=== PATIENT | female | born 1985 ===

== ENCOUNTER → 2016-10-05 | Outpatient (CLI) | payer OTHER ==
--- NOTE | 2016-10-07 16:14 | MR ---
EXAMINATION TYPE: MR brain wo/w con DATE OF EXAM: 10/05/2016 10:16 AM COMPARISON: NONE HISTORY: DIZZINESS CONTRAST: Performed utilizing 20 mL intravenous MultiHance gadolinium contrast. TECHNIQUE: Multiplanar, multiecho imaging on a 3.0 Aline magnet is performed through the brain. Stud y is performed within 24 hours of arrival to the hospital. The craniovertebral junction is normal. The pituitary is normal. Diffusion-weighted imaging is performed. No abnormal hyperintensity is present to suggest an acute i ntracranial infarct or acute ischemic change. There are scattered punctate areas of hyperintensity on T2 and Inversion Recovery weighted sequences which are non-specific but can be related to microvascular ischemic changes. Ventricles and sulci are appropriate for the patient age. No suspicious enhancement is evident. The dural sinus has some mixing of contrast with normal blood or has a filling defect. This is not ob structing the dural sinus. Consider MRV for additional evaluation. This may be more likely related to artifact although thrombus is not excluded at this time. IMPRESSIONS: 1. Irregular filling defect dural sinus. MRV is recommended for additional workup.
== END | disposition home or self-care (01) ==
LOC: RADMRIMAIN 09:06
PROVIDERS: ATTEND Family Medicine
DX: R42 Dizziness and giddiness (principal)
CPT/HCPCS: 70553; A9577

== ENCOUNTER → 2016-10-24 | Outpatient (CLI) | payer OTHER ==
--- NOTE | 2016-10-24 07:45 | MR ---
EXAMINATION TYPE: MR MRA/MRV head wo con DATE OF EXAM: 10/24/2016 COMPARISON: Prior MRI brain October 05, 2016. HISTORY: memory loss, dizziness, slurred speech TECHNIQUE: Time of flight images focusing on the [place] were performed without contrast.. N oncontrast imaging with post processing cerebral venous system was also performed. 2-D and 3-D postpr ocessing imaging is performed. FINDINGS: Only one patent distal vertebral artery is identified, difficult to say if this is single r ight vertebral artery or a tortuous course to distal left vertebral artery. No aneurysmal change is s een in posterior circulation. There are patent posterior communicating arteries identified bilaterall y. Images of the anterior circulation show hypoplastic right A1 segment with filling of right A2 segment due to patent anterior communicating artery. No aneurysmal change is evident. MRV images show patency of the superior sagittal and inferior sagittal sinuses. There is patent inter nal cerebral vein of [place]. There is patent but small caliber straight sinus. There are patent transv erse sinuses draining into sigmoid sinuses bilaterally with subsequent drainage into the proximal int ernal jugular veins. IMPRESSION: 1. No aneurysmal change at the level of the [place]. Normal variant as detailed above. Possi ble occluded or congenitally stenotic vertebral artery with patency of bilateral posterior communicat ing arteries noted. 2. No clinically significant deep cerebral venous thrombus.
== END | disposition home or self-care (01) ==
LOC: RADMRIMAIN 06:10
PROVIDERS: ATTEND Family Medicine
DX: R41.3 Other amnesia (principal); R47.81 Slurred speech; R42 Dizziness and giddiness
CPT/HCPCS: 70544

== ENCOUNTER 2016-11-26 10:00 | Day surgery (SDC) | payer OTHER ==
[2016-11-26] MEDS ORDERED: LIDOCAINE 1% 20 ML VIAL (10MG/ML) FOR IV START INTRADERMA ONE (10:32)
[2016-11-26 10:39] VITALS: RESP 16; TEMP 98.3
[2016-11-26] MEDS ORDERED: LACTATED RINGERS 1,000 ML IV ONE (10:39)
--- NOTE | 2016-11-26 11:30 | P.PCN ---
Date of Procedure: 11/26/16 Preoperative Diagnosis: Postoperative Diagnosis: Procedure(s) Performed: Implants: Anesthesia: local Surgeon: Emiliano Lew Pathology: none sent Condition: stable Disposition: PACU Indications for Procedure: Operative Findings: Description of Procedure: PREOPERATIVE DIAGNOSIS: 1-r/o multiple sclerosis POSTOPERATIVE DIAGNOSIS: 1-r/o multiple sclerosis PROCEDURE 1. Diagnostic lumbar puncture ANESTHESIA: Local with 1% lidocaine EBL: Minimal PROCEDURE INDICATION: The patient with persistent balance problems presents for diagnostic LP with measurement of opening pressures as ordered by Dr. Montejo. No use of blood thinners. PROCEDURE DESCRIPTION / TECHNIQUE: The patient was seen and identified in the preoperative area. Risks, benefits, complications, and alternatives were discussed with the patient, including but not limited to bleeding, infection, nerve damage, allergic reactions to medications, and incomplete pain relief. The patient agreed to proceed with the procedure and signed the consent after all questions were answered. Vital signs were stable. Patient was taken to the procedure room and time out was completed to confirm patient position, procedure, area of pain, and allergies. The patient was placed in the sitting position on procedure table with help from nursing staff. The lumbosacral area was prepped and draped in the usual sterile fashion. Vital signs were closely monitored during the procedure. After localization with 1% lidocaine, a 22-gauge 3.5-inch spinal needle was placed in the L4-L5 interspace. Stylet was removed and clear cerebrospinal fluid was obtained and the opening pressure was noted to be approximately 26.5 cm H2O. 18 ml CSF was removed and put into four tubes COMPLICATIONS: None COMMENTS: None DISPOSITION / PLANS: The patient was placed in a supine position and transferred to the recovery area in a stable condition for observation. There was no evidence of lower extremity motor or sensory deficit after the procedure. Patient was discharged from the recovery room after meeting discharge criteria. Home discharge instructions were given to the patient by the staff. The patient was reexamined prior to discharge and there were no issues. The patient will follow up with her neurologist as scheduled; she was educated about postdural puncture headaches and prevention with fluids and caffeine, and to come to the ER if the headache persisted.
[2016-11-26] MEDS ORDERED: IV FLUID CONTINUATION 1,000 ML IV ONE (11:41)
[2016-11-26 11:50] VITALS: PULSE 69
[2016-11-26 11:58] LABS: ALT 47 U/L (9-52); AST 28 U/L (14-36)
[2016-11-26 12:02] LABS: Rheumatoid Factor, Qnt <9 IU/mL (<12)
[2016-11-26 12:26] VITALS: BP 106/74
[2016-11-26 15:23] LABS: Treponemal Ab Non-Reactive (Non-Reactive)
[2016-11-26 16:24] LABS: ANA w/Reflex to Titer NEGATIVE (NEGATIVE); RNP AB Interpretation NEGATIVE (NEGATIVE)
[2016-11-26 18:12] LABS: Glucose,CSF 60 mg/dL (40-70)
[2016-11-26 19:03] LABS: Appearance,CSF Clear
[2016-11-26 19:07] LABS: Red Blood Cell, CSF Crenated 0 %; Red Blood Cell, CSF Fresh 100 %
[2016-11-27 11:51] LABS: Lyme IgG/IgM 0.1 Index; Lyme IgG/IgM Interp NEGATIVE (NEGATIVE)
== END 2016-11-26 12:18 | disposition home or self-care (01) ==
LOC: ORPAIN 10:00
PROVIDERS: ATTEND Anesthesiology
DX: R20.2 Paresthesia of skin (principal); R26.89 Other abnormalities of gait and mobility; Z79.82 Long term (current) use of aspirin; Z79.1 Long term (current) use of non-steroidal anti-inflammatories (NSAID); Z79.891 Long term (current) use of opiate analgesic
CPT/HCPCS: 62270; 81025; 82040; 82042; 82164; 82784; 82945; 83873; 83916; 84157; 84439; 84443; 84450; 84460; 85613; 85730; 85732; 86038; 86225; 86235; 86431; 86592; 86618; 86780; 87476; 87529; 87798; 88184; 88185; 89050

== ENCOUNTER 2016-11-28 16:12 | Emergency (ER) | payer OTHER ==
[2016-11-28] MEDS ORDERED: SODIUM CHLORIDE 0.9% 1,000 ML IV STA (17:12)
[2016-11-28] MEDS ORDERED: METOCLOPRAMIDE 5 MG/ML 2 ML VIAL IVP STA (17:12)
[2016-11-28] MEDS ORDERED: diphenhydrAMINE 50 MG/ML 1 ML VIAL IVP STA (17:12)
[2016-11-28] MEDS ORDERED: MORPHINE SULFATE 4 MG/ML SYRINGE IV STA (17:12)
--- NOTE | 2016-11-28 17:19 | ED ---
General Adult HPI - General Chief complaint: Headache Stated complaint: Headache Time Seen by Provider: 11/28/16 16:56 Source: patient, RN notes reviewed, old records reviewed Mode of arrival: ambulatory Limitations: no limitations - History of Present Illness Initial comments: 31-year-old female presents emergency Department 2 days after a lumbar puncture presenting with a severe headache. Patient reports that she is feeling fine after the procedure. She reports that the headache started last night and into today, and seems to be worse with position.. Patient states she's been taking Tylenol for the headache however it is not getting any better. She reports she' s had an episode of vomiting. She states that she's had the spinal tap to test cerebral spinal fluid for demyelinating diseases. Patient states that she also has had some left-sided rib pain with certain movements. Denies any fever or chills. Patient reports she had received the spinal tap from Dr. Montejo. - Related Data Home Medications Medication Instructions Recorded Confirmed Aspirin 325 mg PO DAILY 11/26/16 11/28/16 traMADol HCL [Ultram] 50 mg PO DAILY PRN 11/26/16 11/28/16 Previous Rx's Medication Instructions Recorded HYDROcodone/APAP 5-325MG [[place] 1 tab PO Q6HR PRN #10 tab 11/28/16 5-325] Ondansetron Odt [Zofran Odt] 4 mg PO Q8HR PRN #12 tab 11/28/16 Allergies Allergy/AdvReac Type Severity Reaction Status Date / Time No Known Allergies Allergy Verified 11/28/16 16:51 Review of Systems ROS Statement: Those systems with pertinent positive or pertinent negative responses have been documented in the HPI. ROS Other: All systems not noted in ROS Statement are negative. Past Medical History Additional Past Medical History / Comment(s): SPONDYOLOSIS, pt states she is currently being worked up for an autoimmune disorder History of Any Multi-Drug Resistant Organisms: None Reported Past Surgical History: No Surgical Hx Reported Past Anesthesia/Blood Transfusion Reactions: No Reported Reaction Past Psychological History: Depression Smoking Status: Current every day smoker Past Alcohol Use History: Occasional Past Drug Use History: None Reported - Past Family History DAD Family Medical History: Coronary Artery Disease (CAD), Hyperlipidemia General Exam - General Exam Comments Initial Comments: Is a 31-year-old female. No acute distress. Limitations: no limitations General appearance: alert, in no apparent distress Head exam: Present: atraumatic, normocephalic, normal inspection Eye exam: Present: normal appearance, PERRL, EOMI. Absent: scleral icterus, conjunctival injection, periorbital swelling ENT exam: Present: normal exam, mucous membranes moist Neck exam: Present: normal inspection. Absent: tenderness, meningismus, lymphadenopathy Respiratory exam: Present: normal lung sounds bilaterally. Absent: respiratory distress, wheezes, rales, rhonchi, stridor Cardiovascular Exam: Present: regular rate, normal rhythm, normal heart sounds. Absent: systolic murmur, diastolic murmur, rubs, gallop, clicks GI/Abdominal exam: Present: soft, normal bowel sounds. Absent: distended, tenderness, guarding, rebound, rigid Extremities exam: Present: normal inspection, full ROM, normal capillary refill. Absent: tenderness, pedal edema, joint swelling, calf tenderness Back exam: Present: normal inspection Neurological exam: Present: alert, oriented X3, CN II-XII intact Psychiatric exam: Present: normal affect, normal mood Skin exam: Present: warm, dry, intact, normal color. Absent: rash Course Vital Signs 11/28/16 16:48 Temperature 97.7 F Pulse Rate 77 Respiratory 18 Rate Blood Pressure 116/78 O2 Sat by Pulse 97 Oximetry Medical Decision Making - Medical Decision Making 31-year-old female presents emergency Department 2 days after a lumbar puncture presenting with a severe headache. Patient reports that she is feeling fine after the procedure. She reports that the headache started last night and into today. Patient states she's been taking Tylenol for the headache however it is not getting any better. She reports she's had an episode of vomiting. She states that she's had the spinal tap to test cerebral spinal fluid for demyelinating diseases. Patient states that she also has had some left-sided rib pain with certain movements. Denies any fever or chills. Patient was reevaluated and reports that her headache is somewhat diminished after IV fluids and pain medication. Patient's chest x-ray was reviewed and negative for any acute process. She does relate that the pain seems to be worse with sitting forward and the headache diminishes with laying totally flat. Was very consistent with the post spinal tap headache. Discussed with the patient condition with Dr. Marquez. Recommending that patient has caffeine, pain medication and nausea medication. Discussed with the patient to return to the emergency department in the morning if the headache continues to persist for possible blood patch by neurology. Patient agrees to treatment plan will comply. Return parameters were discussed. - Lab Data Result diagrams: 11/28/16 17:40 11/28/16 17:40 Lab Results 11/28/16 11/28/16 Range/Units 17:40 17:40 WBC 7.8 (3.8-10.6) k/uL RBC 4.94 (3.80-5.40) m/uL Hgb 16.0 (11.4-16.0) gm/dL Hct 42.8 (34.0-46.0) % MCV 86.7 (80.0-100.0) fL MCH 32.4 (25.0-35.0) pg MCHC 37.4 H (31.0-37.0) g/dL RDW 13.7 (11.5-15.5) % Plt Count 227 (150-450) k/uL Neutrophils % 82 % Lymphocytes % 14 % Monocytes % 3 % Eosinophils % 1 % Basophils % 0 % Neutrophils # 6.4 (1.3-7.7) k/uL Lymphocytes # 1.1 (1.0-4.8) k/uL Monocytes # 0.2 (0-1.0) k/uL Eosinophils # 0.1 (0-0.7) k/uL Basophils # 0.0 (0-0.2) k/uL Hyperchromasia Slight Sodium 140 (137-145) mmol/L Potassium 4.5 (3.5-5.1) mmol/L Chloride 106 (98-107) mmol/L Carbon Dioxide 25 (22-30) mmol/L Anion Gap 9 mmol/L BUN 10 (7-17) mg/dL Creatinine 0.77 (0.52-1.04) mg/dL Est GFR (MDRD) Af Amer >60 (>60 ml/min/1.73 sqM) Est GFR (MDRD) Non-Af >60 (>60 ml/min/1.73 sqM) Glucose 110 H (74-99) mg/dL Calcium 9.2 (8.4-10.2) mg/dL Total Bilirubin 0.9 (0.2-1.3) mg/dL AST 22 (14-36) U/L ALT 38 (9-52) U/L Alkaline Phosphatase 57 (38-126) U/L Total Protein 7.0 (6.3-8.2) g/dL Albumin 4.3 (3.5-5.0) g/dL Amylase <30 L (30-110) U/L Lipase 45 (23-300) U/L - Radiology Data Radiology results: report reviewed Chest x-ray is reviewed and negative for any acute process. Disposition Clinical Impression: Post lumbar puncture headache Disposition: HOME SELF-CARE Condition: Good Instructions: Acute Headache (ED), Lumbar Puncture (ED) Additional Instructions: denies follow-up with primary care provider. Increased Intake intake as well as take the nausea and pain medication as prescribed. Recommending return to the emergency department if headache continues to persist tomorrow morning. Prescriptions: HYDROcodone/APAP 5-325MG [[place] 5-325] 1 tab PO Q6HR PRN #10 tab PRN Reason: Nausea Ondansetron Odt [Zofran Odt] 4 mg PO Q8HR PRN #12 tab PRN Reason: Nausea Referrals: Christopher Chavez MD [Primary Care Provider] - 1-2 days Time of Disposition: 18:52
[2016-11-28 17:52] LABS: Basophils % (A) 0 %; CH 32.2; CHCM 37.4; Eosinophils # (A) 0.1 k/uL (0-0.7); Eosinophils % (A) 1 %; HCT 42.8 % (34.0-46.0); HDW 3.23; Hyperchromasia Slight; Luc # (Auto) 0.04; Luc % (Auto) 1; Lymphocytes # (A) 1.1 k/uL (1.0-4.8); Lymphocytes % (A) 14 %; MCH 32.4 pg (25.0-35.0); MCHC 37.4 g/dL (31.0-37.0); MCV 86.7 fL (80.0-100.0); Mean Platelet Volume 7.8; Monocytes # (A) 0.2 k/uL (0-1.0); Monocytes % (A) 3 %; Neutrophils # (A) 6.4 k/uL (1.3-7.7); Neutrophils % (A) 82 %; RBC 4.94 m/uL (3.80-5.40); RDW 13.7 % (11.5-15.5); WBC 7.8 k/uL (3.8-10.6); WBC (Perox) 7.53
[2016-11-28 18:02] LABS: ALT 38 U/L (9-52); AST 22 U/L (14-36); Alkaline Phosphatase 57 U/L (38-126); Amylase <30 U/L (30-110); Anion Gap 9 mmol/L; Blood Urea Nitrogen 10 mg/dL (7-17); Calcium 9.2 mg/dL (8.4-10.2); Carbon Dioxide 25 mmol/L (22-30); Chloride 106 mmol/L (98-107); Glucose 110 mg/dL (74-99); Non-African American GFR(MDRD) >60 (>60 ml/min/1.73 sqM); Potassium 4.5 mmol/L (3.5-5.1); Sodium 140 mmol/L (137-145); Total Bilirubin 0.9 mg/dL (0.2-1.3)
--- NOTE | 2016-11-28 18:30 | XR ---
EXAMINATION TYPE: XR chest 2V DATE OF EXAM: 11/28/2016 COMPARISON: NONE HISTORY: Chest pain TECHNIQUE: Frontal and lateral views of the chest are obtained. FINDINGS: There is no focal air space opacity. No evidence for pneumothorax. No pleural effusion. The cardiac silhouette size is within normal limits. The osseous structures are grossly intact. IMPRESSION: 1. No acute cardiopulmonary process.
[2016-11-28] MEDS ORDERED: HYDROmorphone 1 MG/ML 1 ML SYRINGE IVP STA (18:50)
[2016-11-28 18:59] VITALS: BP 103/58; PULSE 70; RESP 16; TEMP 97.9
== END 2016-11-28 19:28 | disposition home or self-care (01) ==
LOC: EC 16:12
DX: G97.1 Other reaction to spinal and lumbar puncture (principal); F17.200 Nicotine dependence, unspecified, uncomplicated; Z79.82 Long term (current) use of aspirin; Z87.39 Personal history of other diseases of the musculoskeletal system and connective tissue; Y84.4 Aspiration of fluid as the cause of abnormal reaction of the patient, or of later complication, without mention of misadventure at the time of the procedure
CPT/HCPCS: 36415; 80053; 82150; 83690; 85025; 87040; 71020; 99284; 96374; 96375 ×3; 96361 ×2; J2270; J1200; J2765; J1170

== ENCOUNTER 2016-12-01 18:44 | Emergency (ER) | payer OTHER ==
--- NOTE | 2016-12-01 19:31 | ED ---
General Adult HPI - General Chief complaint: Headache Stated complaint: headache Time Seen by Provider: 12/01/16 19:00 Source: patient, family, RN notes reviewed, old records reviewed Mode of arrival: ambulatory Limitations: no limitations - History of Present Illness Initial comments: Chief complaint and history of present illness is a 33-year-old female here with a post lumbar puncture headache. The patient had the LP done 5 days ago. 2 days after having had it done she will return the emergency room because of discomfort she was discharged home on recommendations increase her caffeine which she did but the headache is not gone away. No fever. The LP was done for evaluation of a demyelinating disease because of dizziness and poor balance. The patient is not taking any blood thinners. - Related Data Home Medications Medication Instructions Recorded Confirmed traMADol HCL [Ultram] 50 mg PO DAILY PRN 11/26/16 12/01/16 Tylenol Back And Body 1 tab PO Q12H PRN 12/01/16 12/01/16 Previous Rx's Medication Instructions Recorded HYDROcodone/APAP 5-325MG [[place] 1 tab PO Q6HR PRN #10 tab 11/28/16 5-325] Allergies Allergy/AdvReac Type Severity Reaction Status Date / Time No Known Allergies Allergy Verified 12/01/16 18:58 Review of Systems ROS Statement: Those systems with pertinent positive or pertinent negative responses have been documented in the HPI. Review of systems headache when she sits up. When she lays down significantly less problematical. Mild photophobia when up. No stiff neck. No shortness of breath GI/ problems. All systems reviewed. Past medical problems balance problems starting several months ago currently being worked up for connective tissue disorder or demyelinating problem. Surgeries none. Family history no cancers or immunodeficiency disorders. Patient denies ALLERGIES she does smoke strongly encouraged, alcohol use socially. ROS Other: All systems not noted in ROS Statement are negative. Past Medical History Additional Past Medical History / Comment(s): SPONDYOLOSIS, pt states she is currently being worked up for an autoimmune disorder History of Any Multi-Drug Resistant Organisms: None Reported Past Surgical History: No Surgical Hx Reported Past Anesthesia/Blood Transfusion Reactions: No Reported Reaction Past Psychological History: Depression Smoking Status: Current every day smoker Past Alcohol Use History: Occasional Past Drug Use History: None Reported - Past Family History DAD Family Medical History: Coronary Artery Disease (CAD), Hyperlipidemia General Exam - General Exam Comments Initial Comments: General: The patient is awake and alert, complains of a positional related headache when sitting upright she has pain. While laying flat significant other less pain but still uncomfortable. Patient had an LP done 5 days ago. Vital signs temperature 96.9 pulse 82 respiratory rate 18 pulse ox 99% room air blood pressure 115/77 Eye: Pupils are equal, round and reactive to light, extra-ocular movements are intact ; there is normal conjunctiva bilaterally. No signs of icterus. Ears, nose, mouth and throat: There are moist mucous membranes and no oral lesions. Neck: Mild discomfort to the right trapezius muscle. Patient thinks she may have slept wrong. Cardiovascular: There is a regular rate and rhythm. No murmur, rub or gallop is appreciated. Respiratory: Lungs are clear to auscultation, respirations are non-labored, breath sounds are equal. No wheezes, stridor, rales, or rhonchi. Gastrointestinal: No nausea no vomiting Back: Patient had an LP 5 days ago. Musculoskeletal: Normal ROM, no tenderness, There is no pedal edema. There is no calf tenderness or swelling. Sensation intact. Neurological: No neuro deficits. She does have a headache, post-LP type headache increases when sitting or standing decreases with lying flat. Skin: Skin is warm and dry and no rashes or lesions are noted. Limitations: no limitations Course Vital Signs 12/01/16 12/01/16 12/01/16 18:48 19:45 19:55 Temperature 96.9 F L Pulse Rate 82 75 72 Respiratory 18 18 18 Rate Blood Pressure 115/77 112/63 119/69 O2 Sat by Pulse 99 97 97 Oximetry 12/01/16 12/01/16 12/01/16 20:15 20:30 21:30 Temperature 98.0 F Pulse Rate 66 74 66 Respiratory 18 20 20 Rate Blood Pressure 111/70 119/75 115/74 O2 Sat by Pulse 97 97 20 L Oximetry Medical Decision Making - Medical Decision Making I discussed the case with on-call anesthesiologist will see the patient in emergency room for evaluation for possible blood patch. The procedure was done [address] Lew. Anesthesiologist performing the procedure here. He recommended patient lay flat for 30 minutes which she did. She is feeling significantly better. When she sat up she did have some discomfort below her left scapular region. Chest x -ray was done to rule out possibility of a pneumothorax. The radiologist's impression is there is no focal airspace, pleural effusion, or pneumothorax seen. Cardiac silhouette size is within normal limits. The osseous structures are intact. Impression no acute cardiopulmonary process. No significant change from prior. As read by Dr. cleveland Patient be advised return emergency room with any changes or problems. Follow- up with her family physician. Disposition Clinical Impression: Headache, spinal, postoperative Disposition: HOME SELF-CARE Condition: Fair Instructions: Lumbar Puncture (ED) Additional Instructions: Continue with home pain medications follow-up with family physician. Report any changes such as shortness of breath to emergency room. Referrals: Christopher Chavez MD [Primary Care Provider] - 1-2 days Time of Disposition: 22:05
--- NOTE | 2016-12-01 20:28 | P.CON ---
Consult Note - . Consult date: 12/01/16 Assessment/Plan:: This 31 year old lady comes to the emergency room with history of headache. She had a lumbar puncture done 5 days ago for diagnostic purposes to rule out demyelinating disease. She went home and next day started having headache which is bifrontal and occipital in location, 8-10 over 10 in intensity, postural in nature aggravated by standing or sitting position and feels better in the supine posture. She also has some photophobia. She came to the emergency room and was given fluids and tried a lot of caffeine but nothing seems to have worked. Anesthesia was consulted for performing epidural blood patch. History and labs were reviewed and informed consent was obtained. The procedure was done under complete aseptic precautions. Patient was positioned in the sitting posture, and the knee just position and L3-L4 space was identified with previous lumbar puncture [place] was noted. The back was cleaned with iodine solution 3 times. 2 mL of 1% lidocaine was infiltrated into the above mentioned space. A 17-gauge T[place] needle was inserted into the elbow mentioned space and a loss of resistance to aid with some kind at 4-1/2 cm. The ER nurse obtained 20 mL of blood from the left peripheral IV with fresh venipuncture under aseptic precautions. This was injected under aseptic precautions to the epidural space and any instant relief of headache was noted. The VAS came down to 0 from 10. The epidural needle was taken out. Patient was advised to lay flat for the next half an hour and then can be discharged.
[2016-12-01 20:41] VITALS: RESP 20
[2016-12-01 21:36] VITALS: TEMP 98
--- NOTE | 2016-12-01 21:44 | XR ---
EXAMINATION TYPE: XR chest 2V DATE OF EXAM: 12/01/2016 COMPARISON: Chest x-ray from 3 days ago HISTORY: Chest pain and right shoulder pain TECHNIQUE: Frontal and lateral views of the chest are obtained. FINDINGS: There is no focal air space opacity, pleural effusion, or pneumothorax seen. The cardiac silhouette size is within normal limits. The osseous structures are intact. IMPRESSION: No acute cardiopulmonary process. No significant change from prior.
[2016-12-01 22:13] VITALS: BP 113/56; PULSE 71
== END 2016-12-01 22:13 | disposition home or self-care (01) ==
LOC: EC 18:44
DX: G97.1 Other reaction to spinal and lumbar puncture (principal); Y84.4 Aspiration of fluid as the cause of abnormal reaction of the patient, or of later complication, without mention of misadventure at the time of the procedure; M25.511 Pain in right shoulder; F17.200 Nicotine dependence, unspecified, uncomplicated
CPT/HCPCS: 62273; 71020; 99284

== ENCOUNTER → 2017-01-12 | Outpatient (CLI) | payer OTHER ==
--- NOTE | 2017-01-12 11:35 | MR ---
EXAMINATION TYPE: MR brain wo/w [place] wo/wcon DATE OF EXAM: 01/12/2017 COMPARISON: 10/05/2016 HISTORY: Loss of Balance, Headaches, Follow up from previous MRI on PACS TECHNIQUE: Multiplanar, multisequence images of the brain and brainstem is performed without and with IV contras t, utilizing 9.5 mL intravenous Gadavist . FINDINGS: Diffusion weighted images demonstrate no evidence of a recent infarct or other diffusion ab normality. There is no extra-axial fluid collection or significant white matter signal abnormality. The ventricular system and cisternal spaces are normal in size and appearance. The brain volume is age appropriate. Midline structures demonstrate normal morphology. The craniocervical junction appears within normal limits. Post contrast images demonstrate no abnormal enhancement. The dural venous sinuses appear pa tent. Fluoroscopy changes of chronic mild sinusitis noted. There are a couple scattered areas of abnormal s ignal within the white matter which measure less than 5 mm of doubtful significance. Findings are sta ble. IMPRESSION: 1. No acute process [facility] DATE OF EXAM: 01/12/2017 COMPARISON: 10/24/2016 HISTORY: Loss of Balance, Headaches, Follow up from previous MRI on PACS CONTRAST: Standard multiplanar, multisequence MRI departmental protocol utilizing 9.5 mL intravenous Gadavist g adolinium contrast. FINDINGS: Visualized subclavian, and common carotid arteries are patent. Carotid bifurcations are widely patent . Left vertebral artery appears dominant. IMPRESSION: No acute process. Carotid artery bifurcations are widely patent. Left vertebral artery is dominant.
== END | disposition home or self-care (01) ==
LOC: RADMRIMAIN 10:11
PROVIDERS: ATTEND Psychiatry & Neurology Neurology
DX: R27.0 Ataxia, unspecified (principal)
CPT/HCPCS: 70549; 70553; A9581

== ENCOUNTER 2017-10-14 01:48 | Emergency (ER) | payer OTHER ==
[2017-10-14 02:00] VITALS: BP 132/92; PULSE 70; RESP 20; TEMP 97
--- NOTE | 2017-10-14 02:21 | ED ---
Lower Extremity Injury HPI - General Chief Complaint: Extremity Injury, Lower Stated Complaint: ankle pain Time Seen by Provider: 10/14/17 02:13 Source: patient, family, RN notes reviewed Mode of arrival: ambulatory Limitations: no limitations - History of Present Illness Initial Comments: This is a 32-year-old female who presents to the emergency department with chief complaint of right ankle injury. Patient states that she stepped out of her camper at approximately 9:30 this evening and tripped on a rut. She states that she twisted her ankle and fell to the ground. She states she was unable to initially get up off the ground. She states that she has difficulty bearing weight and ambulating due to pain. She states that she is able to walk only with putting pressure on her toes. She denies any other injuries or trauma. Denies recent fevers or chills, chest pain or shortness of breath, abdominal pain, nausea or vomiting. - Related Data Home Medications Medication Instructions Recorded Confirmed traMADol HCL [Ultram] 50 mg PO DAILY PRN 11/26/16 10/14/17 Tylenol Back And Body 1 tab PO Q12H PRN 12/01/16 10/14/17 Sertraline [Zoloft] 25 mg PO DAILY 10/14/17 10/14/17 predniSONE 5 mg PO DAILY 10/14/17 10/14/17 Previous Rx's Medication Instructions Recorded HYDROcodone/APAP 5-325MG [[place] 1 tab PO Q6HR PRN #10 tab 11/28/16 5-325] Allergies Allergy/AdvReac Type Severity Reaction Status Date / Time No Known Allergies Allergy Verified 10/14/17 02:00 Review of Systems ROS Statement: Those systems with pertinent positive or pertinent negative responses have been documented in the HPI. ROS Other: All systems not noted in ROS Statement are negative. Past Medical History Additional Past Medical History / Comment(s): SPONDYOLOSIS, pt states she is currently being worked up for an autoimmune disorder History of Any Multi-Drug Resistant Organisms: None Reported Past Surgical History: No Surgical Hx Reported Past Anesthesia/Blood Transfusion Reactions: No Reported Reaction Past Psychological History: Depression Smoking Status: Current every day smoker Past Alcohol Use History: Occasional Past Drug Use History: None Reported - Past Family History DAD Family Medical History: Coronary Artery Disease (CAD), Hyperlipidemia General Exam - General Exam Comments Initial Comments: General: Awake and alert, well-developed; in no apparent distress. HEENT: Head atraumatic, normocephalic. Pupils are equal, round and reactive to light. Extraocular movements intact. Oropharynx moist without erythema or exudate. Neck: Supple. Normal ROM. Cardiovascular: Regular rate and rhythm. No murmurs, rubs or gallops. Chest symmetrical. Respiratory: Lungs clear to auscultation bilaterally. No wheezes, rales or rhonchi. Normal respiratory effort with no use of accessory muscles. Musculoskeletal: Normal range of motion of the right ankle. There is tenderness on palpation of the lateral and medial ankle with diffuse soft tissue swelling and ecchymosis. No tenderness along the fifth metatarsal. Sensation is intact. Pedal pulses are 2+ equal and palpable bilaterally. Skin: [place], warm and dry without rashes or lesions. Neurological: Alert and oriented x3. CN II-XII grossly intact. Speech is fluent and answers are appropriate. No focal neuro deficits. Psychiatric: Normal mood and affect. No overt signs of depression or anxiety noted. Limitations: no limitations Course Vital Signs 10/14/17 01:57 Temperature 97 F L Pulse Rate 70 Respiratory 20 Rate Blood Pressure 132/92 O2 Sat by Pulse 99 Oximetry Medical Decision Making - Medical Decision Making This is a 32-year-old female who presents to the emergency department with chief complaint of right ankle injury. Patient twisted her right ankle this evening and has difficulty bearing weight and ambulating. On physical examination, there is diffuse swelling, tenderness and ecchymosis noted at the lateral and medial aspects of the right ankle. Patient is neurovascularly intact. X-ray of the right foot and right ankle revealed no acute fractures or dislocations. Patient likely suffering from an ankle sprain. Air cast was placed and patient tolerated well without complication. Recommended rest, ice, elevation and ibuprofen as needed. Recommend wearing the Aircast while ambulating. Recommended follow-up with orthopedics if no improvement of symptoms in 1 week. Patient's vital signs are stable and she is in no acute distress. She will be discharged home at this time. She is in agreement with plan and voices understanding. All questions answered. - Radiology Data Radiology results: report reviewed, image reviewed X-ray right ankle impression: Soft tissue swelling. No fracture. X-ray right foot impression: Negative right foot. Disposition Clinical Impression: Ankle sprain and strain Disposition: HOME SELF-CARE Condition: Good Instructions: Ankle Sprain (ED) Additional Instructions: Please rest, ice, elevate and wear air cast while ambulating. May take ibuprofen 600 mg every 6 hours for pain and inflammation. Please follow up with Dr. Gauthier, orthopedics if no improvement in symptoms in 1 week. Please follow up with primary care provider within 1-2 days. Return to emergency department if symptoms should worsen or any concerns arise. Is patient prescribed a controlled substance at d/c from ED?: No Referrals: None,Stated [Primary Care Provider] - 1-2 days Tres Gauthier DO [Doctor of Osteopathic Medicine] - 1-2 days Time of Disposition: 02:41
--- NOTE | 2017-10-14 02:33 | XR ---
EXAMINATION TYPE: XR ankle complete RT DATE OF EXAM: 10/14/2017 COMPARISON: NONE HISTORY: Pain and swelling TECHNIQUE: 3 views FINDINGS: There is soft tissue swelling around the ankle joint. I see no fracture nor dislocation. An kle mortise is anatomic. Joint spaces are normal. IMPRESSION: Soft tissue swelling. No fracture.
--- NOTE | 2017-10-14 02:33 | XR ---
EXAMINATION TYPE: XR foot complete RT DATE OF EXAM: 10/14/2017 COMPARISON: NONE HISTORY: Pain and swelling TECHNIQUE: 3 views FINDINGS: Metatarsals are intact. I see no fracture nor dislocation. Joint spaces are fairly normal. IMPRESSION: Negative right foot
== END 2017-10-14 02:56 | disposition home or self-care (01) ==
LOC: EC 01:48
DX: S93.401A Sprain of unspecified ligament of right ankle, initial encounter (principal); S96.911A Strain of unspecified muscle and tendon at ankle and foot level, right foot, initial encounter; D89.89 Other specified disorders involving the immune mechanism, not elsewhere classified; F32.9 Major depressive disorder, single episode, unspecified; F17.200 Nicotine dependence, unspecified, uncomplicated; Z79.52 Long term (current) use of systemic steroids; Z79.899 Other long term (current) drug therapy; Z57.39 Occupational exposure to other air contaminants; W18.09XA Striking against other object with subsequent fall, initial encounter; Y93.89 Activity, other specified; Y92.009 Unspecified place in unspecified non-institutional (private) residence as the place of occurrence of the external cause
CPT/HCPCS: 73610; 73630; 99283; L4350

== ENCOUNTER → 2017-10-22 | Outpatient (CLI) | payer OTHER ==
--- NOTE | 2017-10-22 16:57 | CONS ---
CONSULTATION SLEEP CONSULTATION: Farzana is a 32-year-old female patient, a primary of Dr. Violeta Guillen, who is having ongoing neurological symptoms, the exact cause of which is unknown. The patient has been experiencing loss of balance, ataxia, difficulty with mobility, frequent falls and memory deficits. She was investigated locally under the care of Dr. Finesse Montejo, and following that she was referred to [facility]. As part of her workup she had undergone a lumbar puncture and there was no indication for MS. She is still in the process of being investigated; no final diagnosis has been achieved. Meanwhile, the patient was given a trial of steroids, to which she seems to respond, and currently she is on maintenance prednisone of 2.5 mg p.o. daily. While on steroids the patient gained approximately 35 pounds and she started developing features of obstructive sleep apnea. For that reason she was referred to me for further investigation. From the sleep standpoint, the patient has very poor sleep hygiene and irregular schedule. She goes to bed at various times and gets out of bed at various times, and she takes naps during the day. As such, her sleep is excessively broken and fragmented. She has been told that she snores and quits breathing at times. She feels tired and sleepy during the day, and she takes naps at various times. She has been feeling excessively fatigued and sleepy. She occasionally grinds her teeth and she feels restless in sleep. No sleep paralysis. No hallucinations or cataplexy. PAST MEDICAL HISTORY: 1. Obesity. 2. Chronic headache and questionable demyelinating disease, under investigation; currently on steroids. 3. Degenerative arthritis. SURGICAL HISTORY: Surgical history includes previous lumbar puncture. DRUG ALLERGIES: NOT KNOWN. PSYCHIATRIC HISTORY: History of depression. SOCIAL HISTORY: Smokes one pack of cigarettes a day. No history of alcoholism. No history of IV drugs. She is . She has a fiance who is a long haul truck driver, and he spends a lot of time on the road. FAMILY HISTORY: Coronary artery disease and hyperlipidemia in her father. No family history of any sleep disorders. MEDICATION LIST: Medication list includes: 1. Prednisone 2.5 daily. 2. Zoloft 25 daily. 3. Motrin 800 every 6 hours. 4. Tylenol on a p.r.n. basis. REVIEW OF SYSTEMS: Twelve-point review of system was done. Positive findings are all mentioned above in the history of present illness. She has issues with chronic headache, imbalance, numbness and tingling, falls and memory problems. No episodes of waking up in the middle of the night for urination, choking or gasping. No sleepwalking. No sleeptalking. No palpitation. No heartburn. No cardiac disease. No respiratory distress. No heartburn. No nausea or vomiting. No wounds or sores or ulcerations. She has some degenerative arthritis and she has broken teeth related to a previous fall. PHYSICAL EXAMINATION: HER CURRENT VITALS: BP is 122/74, pulse 100, respirations 16, saturation 97% on room air. Temperature 97.5. Weight is 242. Height is 65 inches. Neck size is 15-1/2 inches. GENERAL APPEARANCE: Calm, comfortable. No acute distress. Head is atraumatic, normocephalic. NECK: Supple. Mallampati class 2 to 3. No goiter or neck masses. LUNGS: Clear to auscultation. Heart sounds are regular rate and rhythm. Normal S1, S2. No S3. No murmurs. ABDOMEN: Soft, nontender. No organomegaly. EXTREMITIES: No edema. No cyanosis or clubbing. SKIN: Negative for any wounds or ulcerations. PSYCH: Positive history of anxiety with a possible component of depression in addition. IMPRESSION: 1. Obstructive sleep apnea suspected; currently under investigation. 2. Poor sleep hygiene measures with an irregular sleep schedule. 3. Neurologic manifestations of a disease, currently under investigation. Possible demyelinating disorder. Currently on prednisone 2.5 mg p.o. daily as maintenance. 4. Obesity with a body mass index of 39.6. 5. Chronic tiredness and sleepiness with an Luther score of 19. PLAN: Very important for this patient to have a consistent sleep schedule. I requested that she wake up at the same time every day, and we established a get-up time to be around 6 a.m. in the morning. She needs to follow this even on weekends and during vacations. She also will set up a bedtime that is early enough for her to get at least 5 to 6 hours of sleep, and she will gradually move her time to go to bed earlier to establish 7 hours. I asked her not to go to bed unless she is feeling sleepy, and if she is unable to go to sleep, I asked her to leave the bed after 20 minutes of inability to fall asleep. We talked about relaxation techniques. We talked about limiting exposure to bright light in the evenings. I asked her to turn off her television and any other electronic devices at least 30 minutes before going to bed. Exercising regularly may help in addition to loss of weight and avoidance of any caffeinated beverages or alcohol. The patient will regulate her sleep schedule, and following that she will be set up for a screening polysomnogram to rule out obstructive sleep apnea and any other pathology contributing to her chronic fatigue and sleepiness. We will continue to follow. MMMOISEL / IJN: [id number] /
== END | disposition home or self-care (01) ==
LOC: SLEEP 15:20
PROVIDERS: ATTEND Internal Medicine Critical Care Medicine
DX: E66.9 Obesity, unspecified (principal); F17.210 Nicotine dependence, cigarettes, uncomplicated; R53.83 Other fatigue; R51 Headache; G89.29 Other chronic pain; M19.90 Unspecified osteoarthritis, unspecified site; Z68.39 Body mass index [BMI] 39.0-39.9, adult; Z79.51 Long term (current) use of inhaled steroids; Z79.899 Other long term (current) drug therapy; Z79.1 Long term (current) use of non-steroidal anti-inflammatories (NSAID)
CPT/HCPCS: 99211

== ENCOUNTER 2019-01-20 12:08 | Emergency (ER) | payer OTHER ==
[2019-01-20] MEDS ORDERED: SODIUM CHLORIDE 0.9% 1,000 ML IV ONE (12:23)
--- NOTE | 2019-01-20 12:59 | ED ---
General Adult HPI - General Chief complaint: Vaginal Bleeding Stated complaint: Vaginal bleeding-14 wks pg Time Seen by Provider: 01/20/19 12:19 Source: patient, EMS, RN notes reviewed Mode of arrival: ambulatory Limitations: no limitations - History of Present Illness Initial comments: 33-year-old female currently 14 weeks with a LMP of 10/14/2018 presents to the emergency room for vaginal bleeding. States that she woke up this morning there was blood in her clothes. States she went to the bathroom and had a lot of blood in the toilet. States she feels like she miscarried but is unsure. Patient follows with Dr. Nuñez and has had an uncomplicated thus far. Denies any pain but does admit to some mild cramping. States she recently had a negative gonorrhea chlamydia and trichomonas screen.Patient has no other complaints at this time including shortness of breath, chest pain, abdominal pain, nausea or vomiting, headache, or visual changes. - Related Data Home Medications Medication Instructions Recorded Confirmed traMADol HCL [Ultram] 50 mg PO DAILY PRN 11/26/16 10/14/17 Tylenol Back And Body 1 tab PO Q12H PRN 12/01/16 10/14/17 Sertraline [Zoloft] 25 mg PO DAILY 10/14/17 10/14/17 predniSONE 5 mg PO DAILY 10/14/17 10/14/17 Previous Rx's Medication Instructions Recorded HYDROcodone/APAP 5-325MG [[place] 1 tab PO Q6HR PRN #10 tab 11/28/16 5-325] Allergies Allergy/AdvReac Type Severity Reaction Status Date / Time No Known Allergies Allergy Verified 01/20/19 12:21 Review of Systems ROS Statement: Those systems with pertinent positive or pertinent negative responses have been documented in the HPI. ROS Other: All systems not noted in ROS Statement are negative. Past Medical History Additional Past Medical History / Comment(s): SPONDYOLOSIS, pt states she is currently being worked up for an autoimmune disorder History of Any Multi-Drug Resistant Organisms: None Reported Past Surgical History: No Surgical Hx Reported Past Anesthesia/Blood Transfusion Reactions: No Reported Reaction Past Psychological History: Depression Smoking Status: Current every day smoker Past Alcohol Use History: None Reported Past Drug Use History: None Reported - Past Family History DAD Family Medical History: Coronary Artery Disease (CAD), Hyperlipidemia General Exam Limitations: no limitations General appearance: alert, in no apparent distress Head exam: Present: atraumatic, normocephalic, normal inspection Eye exam: Present: normal appearance, PERRL, EOMI. Absent: scleral icterus, conjunctival injection, periorbital swelling ENT exam: Present: normal exam, mucous membranes moist Neck exam: Present: normal inspection. Absent: tenderness, meningismus, lymphadenopathy Respiratory exam: Present: normal lung sounds bilaterally. Absent: respiratory distress, wheezes, rales, rhonchi, stridor Cardiovascular Exam: Present: regular rate, normal rhythm, normal heart sounds. Absent: systolic murmur, diastolic murmur, rubs, gallop, clicks GI/Abdominal exam: Present: soft, normal bowel sounds. Absent: distended, tende rness, guarding, rebound, rigid External exam: Present: normal external exam. Absent: erythema, swelling, lesions, lacerations, ecchymosis Speculum exam: Present: vaginal bleeding (mild). Absent: normal speculum exam, erythema, vaginal discharge, cervical discharge, foreign body, tissue, laceration By manual exam: Present: normal by manual exam. Absent: cervical motion tenderness, adnexal tenderness, adnexal mass, uterine enlargement, uterine tenderness Neurological exam: Present: alert Course Vital Signs 01/20/19 12:19 Temperature 98.0 F Pulse Rate 85 Respiratory 16 Rate Blood Pressure 113/73 O2 Sat by Pulse 98 Oximetry Medical Decision Making - Medical Decision Making History as documented and obtain from patient. Physical exam is documented. No significant hemorrhage noted. Bleeding seems to have ceased. CBC is unremarkable, hemoglobin is stable. CMP and urine are unremarkable as well. Ultrasound shows a single live intrauterine with a sonographic age of 15 weeks. Low-lying placenta which patient will follow up with her CHILD SUPPORT AGENT for. She will return if she has any worsening symptoms. Patient is agreeable to this plan. - Lab Data Result diagrams: 01/20/19 12:26 01/20/19 12:26 Lab Results 01/20/19 01/20/19 01/20/19 Range/Units 12:25 12:26 12:26 WBC 6.5 (3.8-10.6) k/uL RBC 3.91 (3.80-5.40) m/uL Hgb 12.4 (11.4-16.0) gm/dL Hct 36.0 (34.0-46.0) % MCV 92.2 (80.0-100.0) fL MCH 31.6 (25.0-35.0) pg MCHC 34.3 (31.0-37.0) g/dL RDW 14.8 (11.5-15.5) % Plt Count 186 (150-450) k/uL Neutrophils % 74 % Lymphocytes % 21 % Monocytes % 3 % Eosinophils % 2 % Basophils % 0 % Neutrophils # 4.8 (1.3-7.7) k/uL Lymphocytes # 1.3 (1.0-4.8) k/uL Monocytes # 0.2 (0-1.0) k/uL Eosinophils # 0.1 (0-0.7) k/uL Basophils # 0.0 (0-0.2) k/uL Sodium 138 (137-145) mmol/L Potassium 3.7 (3.5-5.1) mmol/L Chloride 110 H (98-107) mmol/L Carbon Dioxide 20 L (22-30) mmol/L Anion Gap 8 mmol/L BUN 9 (7-17) mg/dL Creatinine 0.48 L (0.52-1.04) mg/dL Est GFR (CKD-EPI)AfAm >90 (>60 ml/min/1.73 sqM) Est GFR (CKD-EPI)NonAf >90 (>60 ml/min/1.73 sqM) Glucose 117 H (74-99) mg/dL Calcium 8.7 (8.4-10.2) mg/dL Total Bilirubin 0.5 (0.2-1.3) mg/dL AST 16 (14-36) U/L ALT 20 (9-52) U/L Alkaline Phosphatase 37 L (38-126) U/L Total Protein 6.0 L (6.3-8.2) g/dL Albumin 3.4 L (3.5-5.0) g/dL HCG, Quant 44915.6 mIU/mL Urine Color Urine Appearance (Clear) Urine pH (5.0-8.0) Ur Specific [place] (1.001-1.035) Urine Protein (Negative) Urine Glucose (UA) (Negative) Urine Ketones (Negative) Urine Blood (Negative) Urine Nitrite (Negative) Urine Bilirubin (Negative) Urine Urobilinogen (<2.0) mg/dL Ur Leukocyte Esterase (Negative) Urine RBC (0-5) /hpf Ur Squamous Epith Cells (0-4) /hpf Urine Mucus (None) /hpf Blood Type O Positive Blood Type Confirm Blood Type Recheck No Previous Record Bld Type Recheck Status CABO Indicated Antibody Screen NEGATIVE Spec Expiration Date 01/23/2019232501/20/19 01/20/19 Range/Units 12:26 13:45 WBC (3.8-10.6) k/uL RBC (3.80-5.40) m/uL Hgb (11.4-16.0) gm/dL Hct (34.0-46.0) % MCV (80.0-100.0) fL MCH (25.0-35.0) pg MCHC (31.0-37.0) g/dL RDW (11.5-15.5) % Plt Count (150-450) k/uL Neutrophils % % Lymphocytes % % Monocytes % % Eosinophils % % Basophils % % Neutrophils # (1.3-7.7) k/uL Lymphocytes # (1.0-4.8) k/uL Monocytes # (0-1.0) k/uL Eosinophils # (0-0.7) k/uL Basophils # (0-0.2) k/uL Sodium (137-145) mmol/L Potassium (3.5-5.1) mmol/L Chloride (98-107) mmol/L Carbon Dioxide (22-30) mmol/L Anion Gap mmol/L BUN (7-17) mg/dL Creatinine (0.52-1.04) mg/dL Est GFR (CKD-EPI)AfAm (>60 ml/min/1.73 sqM) Est GFR (CKD-EPI)NonAf (>60 ml/min/1.73 sqM) Glucose (74-99) mg/dL Calcium (8.4-10.2) mg/dL Total Bilirubin (0.2-1.3) mg/dL AST (14-36) U/L ALT (9-52) U/L Alkaline Phosphatase (38-126) U/L Total Protein (6.3-8.2) g/dL Albumin (3.5-5.0) g/dL HCG, Quant mIU/mL Urine Color Light Yellow Urine Appearance Clear (Clear) Urine pH 6.5 (5.0-8.0) Ur Specific [place] 1.006 (1.001-1.035) Urine Protein Negative (Negative) Urine Glucose (UA) Negative (Negative) Urine Ketones Negative (Negative) Urine Blood Moderate H (Negative) Urine Nitrite Negative (Negative) Urine Bilirubin Negative (Negative) Urine Urobilinogen <2.0 (<2.0) mg/dL Ur Leukocyte Esterase Negative (Negative) Urine RBC 24 H (0-5) /hpf Ur Squamous Epith Cells <1 (0-4) /hpf Urine Mucus Rare H (None) /hpf Blood Type Blood Type Confirm O Positive Blood Type Recheck Bld Type Recheck Status Antibody Screen Spec Expiration Date Disposition Clinical Impression: Vaginal bleeding during Disposition: HOME SELF-CARE Condition: Good Instructions (If sedation given, give patient instructions): Threatened Misca rriage (ED) Additional Instructions: Please follow up with CHILD SUPPORT AGENT as soon as possible. Please return to the emergency department if you have any worsening symptoms. Is patient prescribed a controlled substance at d/c from ED?: No Referrals: Violeta Guillen MD [Primary Care Provider] - 1-2 days Time of Disposition: 14:34
[2019-01-20 13:00] LABS: ALT 20 U/L (9-52); AST 16 U/L (14-36); African American GFR (CKD) >90 (>60 ml/min/1.73 sqM); Albumin 3.4 g/dL (3.5-5.0); Alkaline Phosphatase 37 U/L (38-126); Anion Gap 8 mmol/L; Blood Urea Nitrogen 9 mg/dL (7-17); Calcium 8.7 mg/dL (8.4-10.2); Carbon Dioxide 20 mmol/L (22-30); Chloride 110 mmol/L (98-107); Glucose 117 mg/dL (74-99); Potassium 3.7 mmol/L (3.5-5.1); Sodium 138 mmol/L (137-145); Total Bilirubin 0.5 mg/dL (0.2-1.3)
[2019-01-20 13:23] LABS: Basophils % (A) 0 %; Eosinophils # (A) 0.1 k/uL (0-0.7); Eosinophils % (A) 2 %; HGB 12.4 gm/dL (11.4-16.0); Lymphocytes # (A) 1.3 k/uL (1.0-4.8); Lymphocytes % (A) 21 %; MCH 31.6 pg (25.0-35.0); MCHC 34.3 g/dL (31.0-37.0); MCV 92.2 fL (80.0-100.0); Mean Platelet Volume 7.5; Monocytes # (A) 0.2 k/uL (0-1.0); Monocytes % (A) 3 %; Neutrophils # (A) 4.8 k/uL (1.3-7.7); Neutrophils % (A) 74 %; Platelet Count 186 k/uL (150-450); RBC 3.91 m/uL (3.80-5.40); RDW 14.8 % (11.5-15.5); WBC 6.5 k/uL (3.8-10.6)
--- NOTE | 2019-01-20 13:33 | US ---
EXAMINATION TYPE: US OB >= 14 wk fetus DATE OF EXAM: 01/20/2019 COMPARISON: None CLINICAL HISTORY: Painbleeding with TECHNIQUE: Transabdominal (TA) GESTATIONAL AGE / DATING Physician Established: (14 weeks/0 days) EDC: 07/21/2019 Dates by LMP: (14 weeks/0 days) EDC: 07/21/2019 Dates by First Scan: No previous this is first scan Dates by Current Scan: (15 weeks/2 days) EDC: 07/12/2019 SURVEY IUP: Single PLACENTA: Anterior PREVIA: Low lying placenta terminating approximately 2.3 cm from the internal cervical os. TORI: 10.9 cm Normal CERVICAL LENGTH (transabdominal: norm > 3.0cm): 3.7 cm BIOMETRY PRESENTATION: Breech BPD: 2.7 cm 14 weeks / 5 days HC: 10.5 cm 15 weeks / 0 days AC: 8.8 cm 15 weeks / 0 days FL: 1.7 cm 15 weeks / 1 days ESTIMATED WEIGHT IN GRAMS: 113.67 grams ESTIMATED WEIGHT IN LBS/OZ: 0 lbs. 4 oz. WEIGHT PERCENTAGE BASED ON ESTABLISHED DATES: 96.1% HC/AC: 1.2 Normal FL/AC: 19.7 Normal HEART RATE: 144 bpm RHYTHM: Normal Live IUP that measures slightly ahead of LMP. IMPRESSION: Single live intrauterine has a sonographic age of 15 weeks and 2 days and estim ated date of delivery of 07/12/2019, discordant with menstrual age. Additionally there is a low-lying placenta. Surveillance is recommended in 3 menstrual to ensure placental retraction.
[2019-01-20 13:43] LABS: HCG,Quantitative Serum 19064.6 mIU/mL
[2019-01-20 14:00] LABS: Appearance,Urine Clear (Clear); Bilirubin,Urine Negative (Negative); Blood,Urine Moderate (Negative); Color,Urine Light Yellow; Glucose,Urine (UA) Negative (Negative); Ketones,Urine Negative (Negative); Leukocyte Esterase,Urine Negative (Negative); Mucus,Urine Rare /hpf; Nitrite,Urine Negative (Negative); PH, Urine 6.5 (5.0-8.0); Protein,Urine Negative (Negative); RBC,Urine 24 /hpf (0-5); Specific Gravity,Urine 1.006 (1.001-1.035); Squamous Epithelial Cell,Urine <1 /hpf (0-4); Urobilinogen,Urine <2.0 mg/dL (<2.0)
[2019-01-20 14:48] VITALS: BP 119/78; PULSE 92; RESP 18; TEMP 97
== END 2019-01-20 14:48 | disposition home or self-care (01) ==
LOC: EC 12:08
DX: O20.9 Hemorrhage in early pregnancy, unspecified (principal); O99.89 Other specified diseases and conditions complicating pregnancy, childbirth and the puerperium; R25.2 Cramp and spasm; O99.342 Other mental disorders complicating pregnancy, second trimester; F32.9 Major depressive disorder, single episode, unspecified; O99.332 Smoking (tobacco) complicating pregnancy, second trimester; F17.200 Nicotine dependence, unspecified, uncomplicated; Z3A.15 15 weeks gestation of pregnancy; Z79.52 Long term (current) use of systemic steroids; Z79.899 Other long term (current) drug therapy
CPT/HCPCS: 36415; 76805; 80053; 81001; 84702; 85025; 86850; 86900; 86901; 96360; 96361; 99285

== ENCOUNTER 2019-02-25 14:25 | Emergency (ER) | payer OTHER ==
--- NOTE | 2019-02-25 15:11 | ED ---
Female Urogenital HPI - General Chief complaint: Vaginal Bleeding Stated complaint: vaginal bleeding-19 wks preg Time Seen by Provider: 02/25/19 14:35 Source: patient Mode of arrival: ambulatory Limitations: no limitations - History of Present Illness Initial comments: Patient is a 33-year-old female presenting to the emergency Department with complaints of vaginal bleeding since this morning. Patient is currently 19 weeks . Patient states she had this issue approximately one month ago and was found to have a placenta previa. Patient sees Dr. Nuñez. Patient is . Patient admits to some mild lower abdominal discomfort, no cramping, no severe pain. Patient states she was cleaning a lot yesterday. Patient has been having spotting on and off for the past month but has never been this heavy. Patient states she is soaking through a couple pads today. Patient denies fever, chills, urinary complaints. Patient has no other complaints at this time. Upon arrival to ER, vital signs are stable. - Related Data Home Medications Medication Instructions Recorded Confirmed Pnv,Calcium 72/Iron/Folic Acid 1 tab PO DAILY 02/25/19 02/25/19 [ Plus Tablet] diphenhydrAMINE [Benadryl] 50 mg PO BID 02/25/19 02/25/19 Allergies Allergy/AdvReac Type Severity Reaction Status Date / Time No Known Allergies Allergy Verified 02/25/19 14:47 Review of Systems ROS Statement: Those systems with pertinent positive or pertinent negative responses have been documented in the HPI. ROS Other: All systems not noted in ROS Statement are negative. Past Medical History Additional Past Medical History / Comment(s): SPONDYOLOSIS, pt states she is currently being worked up for an autoimmune disorder History of Any Multi-Drug Resistant Organisms: None Reported Past Surgical History: No Surgical Hx Reported Past Anesthesia/Blood Transfusion Reactions: No Reported Reaction Past Psychological History: Depression Past Alcohol Use History: Occasional - Past Family History DAD Family Medical History: Coronary Artery Disease (CAD), Hyperlipidemia General Exam - General Exam Comments Initial Comments: GENERAL: Well-appearing, well-nourished and in no acute distress. HEAD: Atraumatic, normocephalic. EYES: Pupils equal round and reactive to light, extraocular movements intact, sclera anicteric, conjunctiva are normal. ENT: TMs normal, nares patent, oropharynx clear without exudates. Moist mucous membranes. NECK: Normal range of motion, supple without lymphadenopathy or JVD. LUNGS: Breath sounds clear to auscultation bilaterally and equal. No wheezes rales or rhonchi. HEART: Regular rate and rhythm without murmurs, rubs or gallops. ABDOMEN: Soft, nontender, normoactive bowel sounds. No guarding, no rebound. No masses appreciated. : Deferred, declined today. EXTREMITIES: Normal range of motion, no pitting or edema. No clubbing or cyanosis. NEUROLOGICAL: Cranial nerves II through XII grossly intact. Normal speech, normal gait. PSYCH: Normal mood, normal affect. SKIN: Warm, Dry, normal turgor, no rashes or lesions noted. Limitations: no limitations Course Vital Signs 02/25/19 02/25/19 14:29 17:58 Temperature 97.8 F 97.9 F Pulse Rate 103 H 70 Respiratory 20 16 Rate Blood Pressure 112/70 142/74 O2 Sat by Pulse 98 99 Oximetry Medical Decision Making - Medical Decision Making Patient is a 33-year-old female presenting with vaginal bleeding since this morning. Patient is 19 weeks . . Ultrasound shows placenta previa, HR 132. CBC, CMP, UA are all normal. Patient will follow up with Dr. Nuñez tomorrow. Patient is in agreement with this plan of care. Return parameters were discussed with the patient she verbalized understanding. Patient stable for discharge at this time. Case discussed with Dr. Pepe. - Lab Data Result diagrams: 02/25/19 15:05 02/25/19 15:05 Lab Results 02/25/19 02/25/19 02/25/19 Range/Units 15:05 15:05 15:05 WBC 7.8 (3.8-10.6) k/uL RBC 3.92 (3.80-5.40) m/uL Hgb 12.1 (11.4-16.0) gm/dL Hct 37.0 (34.0-46.0) % MCV 94.4 (80.0-100.0) fL MCH 30.9 (25.0-35.0) pg MCHC 32.7 (31.0-37.0) g/dL RDW 14.6 (11.5-15.5) % Plt Count 170 (150-450) k/uL Neutrophils % 76 % Lymphocytes % 18 % Monocytes % 3 % Eosinophils % 2 % Basophils % 0 % Neutrophils # 6.0 (1.3-7.7) k/uL Lymphocytes # 1.4 (1.0-4.8) k/uL Monocytes # 0.2 (0-1.0) k/uL Eosinophils # 0.1 (0-0.7) k/uL Basophils # 0.0 (0-0.2) k/uL Sodium 137 (137-145) mmol/L Potassium 3.7 (3.5-5.1) mmol/L Chloride 108 H (98-107) mmol/L Carbon Dioxide 20 L (22-30) mmol/L Anion Gap 9 mmol/L BUN 7 (7-17) mg/dL Creatinine 0.49 L (0.52-1.04) mg/dL Est GFR (CKD-EPI)AfAm >90 (>60 ml/min/1.73 sqM) Est GFR (CKD-EPI)NonAf >90 (>60 ml/min/1.73 sqM) Glucose 86 (74-99) mg/dL Calcium 8.9 (8.4-10.2) mg/dL Total Bilirubin 0.5 (0.2-1.3) mg/dL AST 16 (14-36) U/L ALT 12 (9-52) U/L Alkaline Phosphatase 46 (38-126) U/L Total Protein 6.5 (6.3-8.2) g/dL Albumin 3.7 (3.5-5.0) g/dL HCG, Quant 5290.0 mIU/mL Urine Color Yellow Urine Appearance Clear (Clear) Urine pH 6.0 (5.0-8.0) Ur Specific Margie 1.014 (1.001-1.035) Urine Protein Negative (Negative) Urine Glucose (UA) Negative (Negative) Urine Ketones Negative (Negative) Urine Blood Moderate H (Negative) Urine Nitrite Negative (Negative) Urine Bilirubin Negative (Negative) Urine Urobilinogen <2.0 (<2.0) mg/dL Ur Leukocyte Esterase Negative (Negative) Urine RBC 24 H (0-5) /hpf Urine WBC 1 (0-5) /hpf Ur Squamous Epith Cells 1 (0-4) /hpf Hyaline Casts 1 (0-2) /lpf Urine Mucus Rare H (None) /hpf Disposition Clinical Impression: Vaginal bleeding Disposition: HOME SELF-CARE Condition: Stable Instructions (If sedation given, give patient instructions): Placenta Previa (ED) Additional Instructions: Please return to the Emergency Department if symptoms worsen or any other concerns. Follow up with Dr. Nuñez as discussed. Is patient prescribed a controlled substance at d/c from ED?: No Referrals: None,Stated [Primary Care Provider] - 1-2 days Orquidea Nuñez DO [Doctor of Osteopathic Medicine] - 1-2 days
[2019-02-25 15:38] LABS: Basophils % (A) 0 %; Eosinophils # (A) 0.1 k/uL (0-0.7); Eosinophils % (A) 2 %; HGB 12.1 gm/dL (11.4-16.0); Lymphocytes # (A) 1.4 k/uL (1.0-4.8); Lymphocytes % (A) 18 %; MCH 30.9 pg (25.0-35.0); MCHC 32.7 g/dL (31.0-37.0); MCV 94.4 fL (80.0-100.0); Mean Platelet Volume 7.7; Monocytes # (A) 0.2 k/uL (0-1.0); Monocytes % (A) 3 %; Neutrophils % (A) 76 %; Platelet Count 170 k/uL (150-450); RBC 3.92 m/uL (3.80-5.40); RDW 14.6 % (11.5-15.5); WBC 7.8 k/uL (3.8-10.6)
[2019-02-25 15:40] LABS: Appearance,Urine Clear (Clear); Bilirubin,Urine Negative (Negative); Blood,Urine Moderate (Negative); Color,Urine Yellow; Glucose,Urine (UA) Negative (Negative); Hyaline Casts,Urine 1 /lpf (0-2); Ketones,Urine Negative (Negative); Leukocyte Esterase,Urine Negative (Negative); Mucus,Urine Rare /hpf; Nitrite,Urine Negative (Negative); Protein,Urine Negative (Negative); RBC,Urine 24 /hpf (0-5); Specific Gravity,Urine 1.014 (1.001-1.035); Squamous Epithelial Cell,Urine 1 /hpf (0-4); Urobilinogen,Urine <2.0 mg/dL (<2.0)
[2019-02-25 15:46] LABS: ALT 12 U/L (9-52); AST 16 U/L (14-36); African American GFR (CKD) >90 (>60 ml/min/1.73 sqM); Albumin 3.7 g/dL (3.5-5.0); Alkaline Phosphatase 46 U/L (38-126); Anion Gap 9 mmol/L; Blood Urea Nitrogen 7 mg/dL (7-17); Calcium 8.9 mg/dL (8.4-10.2); Carbon Dioxide 20 mmol/L (22-30); Chloride 108 mmol/L (98-107); Glucose 86 mg/dL (74-99); Potassium 3.7 mmol/L (3.5-5.1); Sodium 137 mmol/L (137-145); Total Bilirubin 0.5 mg/dL (0.2-1.3); Total Protein 6.5 g/dL (6.3-8.2)
--- NOTE | 2019-02-25 16:13 | US ---
EXAMINATION TYPE: US OB >= 14 wk fetus DATE OF EXAM: 02/25/2019 COMPARISON: 01/20/2019 CLINICAL HISTORY: bleeding. Patient stated has had vaginal bleeding since 01/20/19; TECHNIQUE: Transabdominal (TA) GESTATIONAL AGE / DATING Physician Established: (19 weeks/1 day) EDC: 07/21/2019 Dates by LMP: (19weeks/1 day) EDC: 07/21/2019 Dates by First Scan: (20weeks/2 days) EDC: 07/12/19 Dates by Current Scan: (19weeks/2 days) EDC: 07/20/2019 Beta HCG (if available): NA SURVEY IUP: Single PLACENTA: Fundal /anterior PREVIA: Marginal TORI: 14.0 cm Normal CERVICAL LENGTH (transabdominal: norm > 3.0cm): 3.7 cm BIOMETRY PRESENTATION: Breech initially LIE: Transverse with head maternal Right BPD: 4.5 cm 19 weeks / 3 days HC: 16.4 cm 19 weeks / 1 day AC: 14.4 cm 19 weeks / 5 days FL: 3.1 cm 19 weeks / 5 days ESTIMATED WEIGHT IN GRAMS: 304.07 grams ESTIMATED WEIGHT IN LBS/OZ: 0 lbs. 11 oz. WEIGHT PERCENTAGE BASED ON ESTABLISHED DATES: 74.7% HC/AC: 1.15 Normal FL/AC: 21.77 Normal HEART RATE: 143 bpm RHYTHM: Normal Single, live IUP, 19weeks/2 days, EDC: 07/20/2019, HR 143bpm; on initial placenta assessment a placen ta previa is noted overlying internal os of cervix. Superior placenta shows possible venous garibay note d as hypoechoic area = 2.1 x 4.0 x 1.0cm. IMPRESSION: Single live intrauterine with a sonographic age of 19 weeks and 2 days, concord ant with menstrual age. The placenta overlies the internal cervical os and hypoechoic area is seen wi thin the fundal placenta, possible venous garibay, retroplacental hemorrhage in the setting of trauma, o r evolving subchorionic hemorrhage. Continued surveillance in a second trimester is recomme nded for the placenta previa. HORIZONTAL DRILL OPERATOR consultation would also be recommended given vaginal bleeding.
[2019-02-25 18:00] VITALS: BP 142/74; PULSE 70; RESP 16; TEMP 97.9
== END 2019-02-25 17:56 | disposition home or self-care (01) ==
LOC: EC 14:25
DX: O44.02 Complete placenta previa NOS or without hemorrhage, second trimester (principal); O99.112 Other diseases of the blood and blood-forming organs and certain disorders involving the immune mechanism complicating pregnancy, second trimester; D89.9 Disorder involving the immune mechanism, unspecified; Z79.899 Other long term (current) drug therapy; Z3A.19 19 weeks gestation of pregnancy
CPT/HCPCS: 36415; 76805; 80053; 81001; 84702; 85025; 99284

== ENCOUNTER 2019-02-28 23:40 | Observation (INO) | payer OTHER ==
[2019-03-01] MEDS ORDERED: SODIUM CHLORIDE 0.9% 1,000 ML IV ONE (00:01)
--- NOTE | 2019-03-01 00:11 | ED ---
General Adult HPI - General Chief complaint: Vaginal Bleeding Stated complaint: 19 wks preg, bleeding Time Seen by Provider: 02/28/19 23:51 Source: patient, family Mode of arrival: ambulatory Limitations: no limitations - History of Present Illness Initial comments: 33-year-old female patient who is currently 19 weeks 5 days presents to the emergency department today for evaluation of heavy vaginal bleeding. She is . Patient states that she was seen 4 days ago for similar symptoms and diagnosed with placenta previa. The patient states she has been having vaginal bleeding but bleeding has become more heavy. States she is passing larger clots. States she has to change her pad every 10-60 minutes. She denies any weakness or dizziness. States she is having bilateral lower abdominal pain and back pain. States she's had this pain since bleeding onset. She did see her OCULAR PATHOLOGIST on and was instructed to maintain pelvic rest. Patient denies any recent rash, fever, chills, shortness breath, chest pain, nausea, vomiting, diarrhea, constipation, numbness, tingling, dizziness, weakness, hematuria, dysuria, urinary urgency, urinary frequency, headache, visual changes, or any other complaints. - Related Data Home Medications Medication Instructions Recorded Confirmed Pnv,Calcium 72/Iron/Folic Acid 1 tab PO DAILY 02/25/19 02/25/19 [ Plus Tablet] diphenhydrAMINE [Benadryl] 50 mg PO BID 02/25/19 02/25/19 Allergies Allergy/AdvReac Type Severity Reaction Status Date / Time No Known Allergies Allergy Verified 02/28/19 23:49 Review of Systems ROS Statement: Those systems with pertinent positive or pertinent negative responses have been documented in the HPI. ROS Other: All systems not noted in ROS Statement are negative. Past Medical History Additional Past Medical History / Comment(s): SPONDYOLOSIS, pt states she is cur rently being worked up for an autoimmune disorder History of Any Multi-Drug Resistant Organisms: None Reported Past Surgical History: No Surgical Hx Reported Past Anesthesia/Blood Transfusion Reactions: No Reported Reaction Past Psychological History: Depression Smoking Status: Current every day smoker Past Alcohol Use History: Occasional Past Drug Use History: None Reported - Past Family History DAD Family Medical History: Coronary Artery Disease (CAD), Hyperlipidemia General Exam Limitations: no limitations General appearance: alert, in no apparent distress, other (Physical well- developed, well-nourished adult female patient in no acute distress. Vital signs upon presentation are temperature 97.7F, pulse 112, respirations 20, blood pressure 108/64, pulse ox 99% on room air.) Eye exam: Present: normal appearance, PERRL, EOMI. Absent: scleral icterus, conjunctival injection, periorbital swelling ENT exam: Present: normal exam, normal oropharynx, mucous membranes moist Respiratory exam: Present: normal lung sounds bilaterally. Absent: respiratory distress, wheezes, rales, rhonchi, stridor Cardiovascular Exam: Present: normal rhythm, tachycardia, normal heart sounds. Absent: systolic murmur, diastolic murmur, rubs, gallop, clicks External exam: Present: normal external exam Speculum exam: Present: vaginal bleeding, other (Cervical os closed) Neurological exam: Present: alert, oriented X3, CN II-XII intact Psychiatric exam: Present: normal affect, normal mood Skin exam: Present: warm, dry, intact, normal color. Absent: rash Course Vital Signs 02/28/19 23:46 Temperature 97.7 F Pulse Rate 112 H Respiratory 20 Rate Blood Pressure 108/64 O2 Sat by Pulse 99 Oximetry Medical Decision Making - Medical Decision Making 33-year-old female patient presented to the emergency department today for evaluation of heavy vaginal bleeding. Patient is 19 weeks 5 days, . Was diagnosed with placenta previa on Saturday, has been maintaining pelvic rest however bleeding has worsened. The patient states she is feeling somewhat weak and short of breath. Lungs are clear to auscultation with good air movement. Pelvic exam was performed and showed minimal dark red bleeding at this time, cervical os is closed. heart tones were 145. Labs reviewed hemoglobin did drop from 12.1 to 10.5 since her visit on Saturday. Case was discussed with the on-call OB Dr. Lott who recommends admission for monitoring. We will perform serial cbc. She will be admitted to the labor and delivery unit. - Lab Data Result diagrams: 03/01/19 00:19 03/01/19 00:19 Lab Results 03/01/19 03/01/19 03/01/19 Range/Units : 00: 00:19 WBC 8.0 (3.8-10.6) k/uL RBC 3.28 L (3.80-5.40) m/uL Hgb 10.5 L (11.4-16.0) gm/dL Hct 30.3 L (34.0-46.0) % MCV 92.1 (80.0-100.0) fL MCH 32.0 (25.0-35.0) pg MCHC 34.7 (31.0-37.0) g/dL RDW 14.8 (11.5-15.5) % Plt Count 184 (150-450) k/uL Neutrophils % 72 % Lymphocytes % 22 % Monocytes % 3 % Eosinophils % 2 % Basophils % 0 % Neutrophils # 5.8 (1.3-7.7) k/uL Lymphocytes # 1.7 (1.0-4.8) k/uL Monocytes # 0.2 (0-1.0) k/uL Eosinophils # 0.1 (0-0.7) k/uL Basophils # 0.0 (0-0.2) k/uL Poikilocytosis Slight PT 9.7 (9.0-12.0) sec INR 0.9 (<1.2) APTT 23.4 (22.0-30.0) sec Sodium 137 (137-145) mmol/L Potassium 3.3 L (3.5-5.1) mmol/L Chloride 107 (98-107) mmol/L Carbon Dioxide 20 L (22-30) mmol/L Anion Gap 10 mmol/L BUN 9 (7-17) mg/dL Creatinine 0.47 L (0.52-1.04) mg/dL Est GFR (CKD-EPI)AfAm >90 (>60 ml/min/1.73 sqM) Est GFR (CKD-EPI)NonAf >90 (>60 ml/min/1.73 sqM) Glucose 140 H (74-99) mg/dL Calcium 8.9 (8.4-10.2) mg/dL Total Bilirubin 0.2 (0.2-1.3) mg/dL AST 14 (14-36) U/L ALT 9 (9-52) U/L Alkaline Phosphatase 41 (38-126) U/L Total Protein 6.0 L (6.3-8.2) g/dL Albumin 3.4 L (3.5-5.0) g/dL Disposition Clinical Impression: Anemia associated with acute blood loss, Placenta previa with hemorrhage Disposition: ADMITTED IP TO THIS [facility] Condition: Serious Referrals: None,Stated [Primary Care Provider] - 1-2 days Decision to Admit Reason: Admit from EC Decision Date: 03/01/19 Decision Time: 01:17
[2019-03-01 00:28] LABS: Basophils % (A) 0 %; Eosinophils # (A) 0.1 k/uL (0-0.7); Eosinophils % (A) 2 %; HCT 30.3 % (34.0-46.0); HGB 10.5 gm/dL (11.4-16.0); Lymphocytes # (A) 1.7 k/uL (1.0-4.8); Lymphocytes % (A) 22 %; MCHC 34.7 g/dL (31.0-37.0); MCV 92.1 fL (80.0-100.0); Monocytes # (A) 0.2 k/uL (0-1.0); Monocytes % (A) 3 %; Neutrophils # (A) 5.8 k/uL (1.3-7.7); Neutrophils % (A) 72 %; Platelet Count 184 k/uL (150-450); Poikilocytosis Slight; RBC 3.28 m/uL (3.80-5.40); RDW 14.8 % (11.5-15.5)
[2019-03-01 00:39] LABS: ALT 9 U/L (9-52); AST 14 U/L (14-36); African American GFR (CKD) >90 (>60 ml/min/1.73 sqM); Albumin 3.4 g/dL (3.5-5.0); Alkaline Phosphatase 41 U/L (38-126); Anion Gap 10 mmol/L; Blood Urea Nitrogen 9 mg/dL (7-17); Calcium 8.9 mg/dL (8.4-10.2); Carbon Dioxide 20 mmol/L (22-30); Chloride 107 mmol/L (98-107); Glucose 140 mg/dL (74-99); Potassium 3.3 mmol/L (3.5-5.1); Sodium 137 mmol/L (137-145); Total Bilirubin 0.2 mg/dL (0.2-1.3)
[2019-03-01 00:40] LABS: INR 0.9 (<1.2); Partial Thromboplastin Time 23.4 sec (22.0-30.0); Prothrombin Time 9.7 sec (9.0-12.0)
[2019-03-01] MEDS ORDERED: POTASSIUM CHLORIDE ER 20 MEQ TAB.ER PO STA (00:57)
[2019-03-01] MEDS ORDERED: NALOXONE 0.4 MG/ML 1 ML VIAL IV PRN (01:14)
[2019-03-01] MEDS ORDERED: ACETAMINOPHEN TAB 325 MG TAB PO PRN (01:14)
[2019-03-01 02:33] LABS: Appearance,Urine Clear (Clear); Bilirubin,Urine Negative (Negative); Blood,Urine Large (Negative); Calcium Oxalate Crystals,Urine Rare /hpf; Color,Urine Yellow; Glucose,Urine (UA) Negative (Negative); Ketones,Urine Negative (Negative); Leukocyte Esterase,Urine Negative (Negative); Mucus,Urine Rare /hpf; Nitrite,Urine Negative (Negative); PH, Urine 5.5 (5.0-8.0); Protein,Urine Trace (Negative); RBC,Urine 76 /hpf (0-5); Specific Gravity,Urine 1.022 (1.001-1.035); Squamous Epithelial Cell,Urine <1 /hpf (0-4); Urobilinogen,Urine <2.0 mg/dL (<2.0); WBC,Urine 4 /hpf (0-5)
[2019-03-01 04:33] VITALS: BP 92/61; RESP 16; TEMP 98; BMI 37.8
[2019-03-01 06:39] LABS: Basophils % (A) 0 %; Eosinophils # (A) 0.1 k/uL (0-0.7); Eosinophils % (A) 2 %; HCT 28.1 % (34.0-46.0); HGB 9.3 gm/dL (11.4-16.0); Lymphocytes # (A) 1.6 k/uL (1.0-4.8); Lymphocytes % (A) 23 %; MCH 31.4 pg (25.0-35.0); MCHC 33.1 g/dL (31.0-37.0); MCV 94.7 fL (80.0-100.0); Mean Platelet Volume 7.3; Monocytes # (A) 0.3 k/uL (0-1.0); Monocytes % (A) 4 %; Neutrophils # (A) 4.8 k/uL (1.3-7.7); Neutrophils % (A) 69 %; Platelet Count 178 k/uL (150-450); RBC 2.97 m/uL (3.80-5.40); WBC 6.8 k/uL (3.8-10.6)
[2019-03-01] MEDS: LACTATED RINGERS 1,000 ML IV SCH ×2 (07:26→11:03)
--- NOTE | 2019-03-01 09:17 | US ---
EXAMINATION TYPE: US OB >= 14 wk fetus DATE OF EXAM: 03/01/2019 COMPARISON: None CLINICAL HISTORY: vag bleeding known previa, h/o low lying placenta in Sept, bleeding ever since TECHNIQUE: OBTA GESTATIONAL AGE / DATING Physician Established: (19 weeks/5 days) EDC: 07/21/2019 Dates by LMP: (19 weeks/5 days) EDC: 07/21/2019 Dates by First Scan: (21 weeks/0 days) EDC: 07/12/2019 Dates by Current Scan: (20 weeks/3 days) EDC: 07/16/2019 SURVEY IUP: PLACENTA: Anterior, measured tip of placenta from cervix with range from 3.6-4.0cm PREVIA: No Previa TORI: 14.2 cm Normal CERVICAL LENGTH (transabdominal: norm > 3.0cm): non distended bladder, was unable to discern length BIOMETRY PRESENTATION: Breech BPD: 4.7 cm 20 weeks / 1 days HC: 17.4 cm 19 weeks / 6 days AC: 16.0 cm 21 weeks / 1 days FL: 3.6 cm 21 weeks / 3 days ESTIMATED WEIGHT IN GRAMS: 398 grams ESTIMATED WEIGHT IN LBS/OZ: 0 lbs. 14 oz. WEIGHT PERCENTAGE BASED ON ESTABLISHED DATES: 97% HC/AC: 1.1 Normal FL/AC: 22.4 Normal HEART RATE: 137 bpm RHYTHM: Normal IMPRESSION: MCKEE FETUS PRESENT IN BREECH PRESENTATION WITH A GESTATIONAL AGE OF 20 WEEKS 3 DAYS +/- 2 WEEKS. THIS IS CONCORDANT WITH MENSTRUAL HISTORY. ESTIMATED DATE OF CONFINEMENT BASED ON THIS EXAMINATION I S . THERE IS NO EVIDENCE OF PLACENTA PREVIA AT THIS TIME.
--- NOTE | 2019-03-01 09:49 | P.HPOB ---
History of Present Illness H&P Date: 03/01/19 Chief Complaint: vaginal bleeding 33-year-old presents at 19 weeks and 5 days complaining of increase in her vaginal bleeding. She was diagnosed with placenta previa and electro placental clot and the fundal portion of about 4 cm on 02/25/2019. For the last few days she's been having some light bleeding. The bleeding increased yesterday to have a change a pad every 15-20 minutes. She then presented to the hospital. She had a 2 g drop her hemoglobin from 12-10. heart tones were present. She is admitted to [facility] for an ultrasound was performed. Ultrasound is a little confusing. The support service tech said that the ultrasound is essentially unchanged. The official report of the ultrasound says that there is no previa and doesn't mention any clot behind the placenta. In any case, the patient's bleeding has decreased to scant amount. She is not filling pads but still having some dark red bleeding. She is not cramping. She does have on ultrasound appointment and consultation with maternal medicine tomorrow at 10 AM. When I checked her hemoglobin again this morning it was 9.3. I will get another hemoglobin 6 hours from that one to ensure that this is stable. As long as it is stable I will likely discharge her home so she can follow up with MFM tomorrow. Review of Systems All systems: negative Constitutional: Denies chills, Denies fever Eyes: denies blurred vision, denies pain Ears, nose, mouth and throat: Denies headache, Denies sore throat Cardiovascular: Denies chest pain, Denies shortness of breath Respiratory: Reports cough, Reports dyspnea (With exertion), Reports wheezing Gastrointestinal: Denies abdominal pain, Denies diarrhea, Denies nausea, Denies vomiting Genitourinary: Reports abnormal vaginal bleeding (In ), Reports hematuria, Denies dysuria Musculoskeletal: Denies myalgias Integumentary: Denies pruritus, Denies rash Neurological: Denies numbness, Denies weakness Psychiatric: Denies anxiety, Denies depression Endocrine: Denies fatigue, Denies weight change Past Medical History Additional Past Medical History / Comment(s): SPONDYOLOSIS, pt states she is currently being worked up for an autoimmune disorder History of Any Multi-Drug Resistant Organisms: None Reported Past Surgical History: No Surgical Hx Reported Past Anesthesia/Blood Transfusion Reactions: No Reported Reaction Past Psychological History: Depression Smoking Status: Current every day smoker Past Alcohol Use History: Occasional Additional Past Alcohol Use History / Comment(s): 1 PPD SMOKER Past Drug Use History: None Reported - Past Family History DAD Family Medical History: Coronary Artery Disease (CAD), Hyperlipidemia Medications and Allergies Home Medications Medication Instructions Recorded Confirmed Type Pnv,Calcium 72/Iron/Folic Acid 1 tab PO DAILY 02/25/19 02/25/19 History [ Plus Tablet] diphenhydrAMINE [Benadryl] 50 mg PO BID 02/25/19 02/25/19 History Allergies Allergy/AdvReac Type Severity Reaction Status Date / Time No Known Allergies Allergy Verified 02/28/19 23:49 Exam Osteopathic Statement: *. No significant issues noted on an osteopathic structural exam other than those noted in the History and Physical/Consult. Vital Signs Temp Pulse Pulse Resp BP BP Pulse Ox 03/01/19 02:44 98.0 F 91 16 92/61 98 03/01/19 02:22 98.8 F 97 20 112/79 100 03/01/19 01:17 92 20 121/75 100 02/28/19 23:46 97.7 F 112 H 20 108/64 99 Intake and Output 02/28/19 03/01/19 03/01/19 22:59 06:59 14:59 Other: # Voids 3 Weight 102.965 kg Heart: Regular rate and rhythm Lungs: She has diminished lung sounds and is wheezing Abdomen: Soft, nontender Extremities: Negative Homans sign Results Result Diagrams: 03/01/19 06:18 03/01/19 00:19 Abnormal Lab Results - Last 24 Hours (Table) 03/01/19 03/01/19 03/01/19 Range/Units 00:19 00:19 01:00 RBC 3.28 L (3.80-5.40) m/uL Hgb 10.5 L (11.4-16.0) gm/dL Hct 30.3 L (34.0-46.0) % Potassium 3.3 L (3.5-5.1) mmol/L Carbon Dioxide 20 L (22-30) mmol/L Creatinine 0.47 L (0.52-1.04) mg/dL Glucose 140 H (74-99) mg/dL Total Protein 6.0 L (6.3-8.2) g/dL Albumin 3.4 L (3.5-5.0) g/dL Urine Protein Trace H (Negative) Urine Blood Large H (Negative) Urine RBC 76 H (0-5) /hpf Calcium Oxalate Crystal Rare H (None) /hpf Urine Mucus Rare H (None) /hpf 03/01/19 Range/Units 06:18 RBC 2.97 L (3.80-5.40) m/uL Hgb 9.3 L (11.4-16.0) gm/dL Hct 28.1 L (34.0-46.0) % Potassium (3.5-5.1) mmol/L Carbon Dioxide (22-30) mmol/L Creatinine (0.52-1.04) mg/dL Glucose (74-99) mg/dL Total Protein (6.3-8.2) g/dL Albumin (3.5-5.0) g/dL Urine Protein (Negative) Urine Blood (Negative) Urine RBC (0-5) /hpf Calcium Oxalate Crystal (None) /hpf Urine Mucus (None) /hpf Assessment and Plan (1) Placenta previa with hemorrhage Current Visit: Yes Status: Acute Code(s): O44.10 - COMPLETE PLACENTA PREVIA WITH HEMORRHAGE, UNSP TRIMESTER SNOMED Code(s): 420347768 (2) Anemia associated with acute blood loss Current Visit: Yes Status: Acute Code(s): D62 - ACUTE POSTHEMORRHAGIC ANEMIA SNOMED Code(s): 103714328 Plan: 1. Repeat CBC at noon today 2. If hemoglobin is stable I'll likely discharge home since she can follow up with M tomorrow. 3. While she is here and going to give her a breathing treatment for her wheezing. If the wheezing is not improved then I May order chest x-ray.
[2019-03-01] MEDS: ALBUTEROL NEBULIZED 2.5 MG/3 ML INHALATION SCH ×2 (11:16)
[2019-03-01 11:28] VITALS: PULSE 92
[2019-03-01 11:42] LABS: Basophils % (A) 0 %; Eosinophils # (A) 0.1 k/uL (0-0.7); Eosinophils % (A) 2 %; HCT 27.2 % (34.0-46.0); HGB 9.5 gm/dL (11.4-16.0); Lymphocytes # (A) 1.3 k/uL (1.0-4.8); Lymphocytes % (A) 22 %; MCH 32.9 pg (25.0-35.0); MCHC 35.1 g/dL (31.0-37.0); MCV 93.9 fL (80.0-100.0); Mean Platelet Volume 7.8; Monocytes # (A) 0.2 k/uL (0-1.0); Monocytes % (A) 3 %; Neutrophils # (A) 4.2 k/uL (1.3-7.7); Neutrophils % (A) 72 %; Platelet Count 161 k/uL (150-450); RBC 2.89 m/uL (3.80-5.40); RDW 15.2 % (11.5-15.5); WBC 5.9 k/uL (3.8-10.6)
== END 2019-03-01 15:20 | disposition home or self-care (01) ==
LOC: EC 23:40 → UNDOADMIN 03-01 01:14 → 4FBP 03-01 01:14 → INTOOBSV 03-01 01:14 → UNDODISIN 03-01 15:20
PROVIDERS: ADMIT Obstetrics & Gynecology; ATTEND Obstetrics & Gynecology
DX: O44.12 Complete placenta previa with hemorrhage, second trimester (principal); D62 Acute posthemorrhagic anemia; O99.332 Smoking (tobacco) complicating pregnancy, second trimester; F17.210 Nicotine dependence, cigarettes, uncomplicated; O99.89 Other specified diseases and conditions complicating pregnancy, childbirth and the puerperium; M47.819 Spondylosis without myelopathy or radiculopathy, site unspecified; O99.342 Other mental disorders complicating pregnancy, second trimester; F32.9 Major depressive disorder, single episode, unspecified; O99.512 Diseases of the respiratory system complicating pregnancy, second trimester; R06.2 Wheezing; Z3A.19 19 weeks gestation of pregnancy; Z82.49 Family history of ischemic heart disease and other diseases of the circulatory system; Z83.49 Family history of other endocrine, nutritional and metabolic diseases
CPT/HCPCS: 96360; 96361; 99285; 36415; 94640; 86900; 86901; 80053; 85025; 85610; 85730; 86850; 81001; 76805; G0378

== ENCOUNTER 2019-03-10 02:30 | Inpatient (IN) | payer OTHER ==
[2019-03-10] MEDS ORDERED: BUTORPHANOL 1 MG/ML 1 ML VIAL IV PRN (03:13)
[2019-03-10 03:58] LABS: Anisocytosis Slight; Basophils % (A) 0 %; Eosinophils # (A) 0.1 k/uL (0-0.7); Eosinophils % (A) 0 %; HCT 27.4 % (34.0-46.0); HGB 9.4 gm/dL (11.4-16.0); Lymphocytes % (A) 9 %; MCH 32.2 pg (25.0-35.0); MCHC 34.2 g/dL (31.0-37.0); Mean Platelet Volume 7.1; Monocytes # (A) 0.4 k/uL (0-1.0); Monocytes % (A) 4 %; Neutrophils # (A) 9.6 k/uL (1.3-7.7); Neutrophils % (A) 86 %; Platelet Count 168 k/uL (150-450); Poikilocytosis Slight; RBC 2.91 m/uL (3.80-5.40); RDW 16.2 % (11.5-15.5); WBC 11.1 k/uL (3.8-10.6)
[2019-03-10 04:22] VITALS: BMI 37.8
--- NOTE | 2019-03-10 04:29 | P.HPOB ---
History of Present Illness H&P Date: 03/10/19 Chief Complaint: Severe abdominal cramping This is a 33-year-old female 3 para 2 with an estimated date of confinement of 07/21/2019, estimated gestational age of 21-2/7 weeks, who presents by ambulance to labor and delivery for severe abdominal cramping and contractions that began approximately an hour prior to arrival. She states the cramping became very intense all of a sudden. Once the cramping started, she had stopped bleeding. Her has been complicated by spotting and bleeding throughout the . She initially was diagnosed with a previa but this did resolve. She was recently seen by maternal medicine who did not find a previa or abruption however they did note a large clot above the internal os. She has at times had heavier vaginal bleeding and clots that has waxed and waned throughout her so far. In addition she is gestational diabetic and had been checking her blood sugars and following a diabetic diet. labs: Hepatitis B surface antigen-negative RPR-nonreactive Rubella-immune Blood type-O+ Antibody screen-negative HIV-nonreactive Hemoglobin-13.7 Toxoplasma screen-negative One hour Glucola early-168 Obstetrical history: . History of 2 vaginal deliveries at term. Both pregnancies were complicated by gestational diabetes. Gynecologic history: No history of sexual transmitted diseases. Social history: She does smoke 10-15 cigarettes per day. She denies any alcohol or street drugs. Review of Systems Constitutional: Denies chills, Denies fever Eyes: denies blurred vision, denies pain Ears, nose, mouth and throat: Denies headache, Denies sore throat Cardiovascular: Denies chest pain, Denies shortness of breath Respiratory: Denies cough Gastrointestinal: Reports abdominal pain Genitourinary: Reports abnormal vaginal bleeding, Reports pelvic pain, Reports Musculoskeletal: Reports low back pain Integumentary: Denies pruritus, Denies rash Neurological: Denies numbness, Denies weakness Past Medical History Additional Past Medical History / Comment(s): Gestational diabetes History of Any Multi-Drug Resistant Organisms: None Reported Past Surgical History: No Surgical Hx Reported Past Anesthesia/Blood Transfusion Reactions: No Reported Reaction Past Psychological History: Depression Smoking Status: Current every day smoker Past Alcohol Use History: Occasional Additional Past Alcohol Use History / Comment(s): 1 PPD SMOKER Past Drug Use History: None Reported - Past Family History DAD Family Medical History: Coronary Artery Disease (CAD), Hyperlipidemia Medications and Allergies Home Medications Medication Instructions Recorded Confirmed Type Pnv,Calcium 72/Iron/Folic Acid 1 tab PO DAILY 02/25/19 03/10/19 History [ Plus Tablet] Iron/Folate 9/Vit C/D3/B6/B12 1 tab PO DAILY 03/10/19 03/10/19 History [Nufera Tablet] Allergies Allergy/AdvReac Type Severity Reaction Status Date / Time No Known Allergies Allergy Verified 03/10/19 02:44 Exam Osteopathic Statement: *. No significant issues noted on an osteopathic structural exam other than those noted in the History and Physical/Consult. Intake and Output 03/09/19 03/09/19 03/10/19 14:59 22:59 06:59 Other: Weight 102.965 kg Gen.: Well-developed well-nourished female in acute distress due to pain HEENT: Within normal limits Heart: Regular rate and rhythm Lungs: Clear to auscultation bilaterally Abdomen: , mildly tender Cervix: Appears to be completely dilated with parts palpated in the vagina, possibly buttocks. Scant dark blood is noted heart tones initially detected at 140s by Doppler Extremities: Negative Homans Results Result Diagrams: 03/10/19 03:30 Abnormal Lab Results - Last 24 Hours (Table) 03/10/19 Range/Units 03:30 WBC 11.1 H (3.8-10.6) k/uL RBC 2.91 L (3.80-5.40) m/uL Hgb 9.4 L (11.4-16.0) gm/dL Hct 27.4 L (34.0-46.0) % RDW 16.2 H (11.5-15.5) % Neutrophils # 9.6 H (1.3-7.7) k/uL Assessment and Plan (1) labor in second trimester with delivery in second trimester Current Visit: Yes Status: Acute Code(s): O60.12X0 - LABOR SECOND TRI W DELIVERY SECOND TRI, UNSP SNOMED Code(s): [id number] Plan: Admission for inevitable delivery. We'll give pain control and obtain labs. Patient is aware that the is previable at this stage and therefore will be given comfort care but no resuscitation.
--- NOTE | 2019-03-10 04:32 | P.PROBDLV ---
Vaginal Delivery Note - . Vaginal Delivery Note: The patient complained of severe cramping every minute. On my exam, parts are palpated in the vagina. She did bear down and a gush of bloody fluid was noted at 3:43 AM. Shortly thereafter she began pushing and the delivered in a becky breech presentation at 3:46 AM. A viable male is noted with scores of 4 at 1 minute and 3 at 5 minutes. Weight is pending at this time. Placenta delivered shortly thereafter at 3:48 AM. The placenta appeared intact and there was a large clot adherent to the edge of the placenta. Mother is allowed to hold and comfort the infant. Spiritual care will be offered.
[2019-03-10] MEDS ORDERED: IBUPROFEN 600 MG TAB PO PRN (04:39)
[2019-03-10] MEDS ORDERED: ZOLPIDEM 5 MG TAB PO PRN (04:39)
[2019-03-10] MEDS ORDERED: OXYTOCIN 20 UNITS/1000 ML NS 1,000 ML IV SCH (04:39)
[2019-03-10] MEDS ORDERED: BENZOCAINE/MENTHOL SPRAY 1 GM/SPRAY AEROSOL TOPICAL PRN (04:39)
[2019-03-10] MEDS ORDERED: ACETAMINOPHEN TAB 325 MG TAB PO PRN (04:39)
[2019-03-10] MEDS ORDERED: LANOLIN CREAM 5 GM TUBE TOPICAL PRN (04:39)
[2019-03-10] MEDS ORDERED: WITCH HAZEL 1 EACH MED..PAD TOPICAL PRN (04:39)
[2019-03-10] MEDS ORDERED: HYDROCORTISONE 2.5% RECTAL CREAM 30 GM TUBE RECTAL PRN (04:39)
[2019-03-10] MEDS ORDERED: diphenhydrAMINE 50 MG/ML 1 ML VIAL IVP PRN ×2 (04:39)
[2019-03-10] MEDS ORDERED: diphenhydrAMINE 50 MG CAP PO PRN (04:39)
[2019-03-10] MEDS ORDERED: diphenhydrAMINE 25 MG CAP PO PRN (04:39)
[2019-03-10] MEDS ORDERED: SIMETHICONE 80 MG CHEWABLE PO PRN (04:39)
[2019-03-10 06:33] VITALS: RESP 16
[2019-03-10] MEDS ORDERED: SENNOSIDES-DOCUSATE SODIUM 1 EACH TAB PO SCH (08:00)
[2019-03-10] MEDS ORDERED: HYDROcodone/APAP 5-325MG 1 EACH TAB PO PRN (10:27)
--- NOTE | 2019-03-10 10:38 | P.DS ---
Providers Date of admission: 03/10/19 03:24 Expected date of discharge: 03/10/19 Attending physician: Orquidea Nuñez Primary care physician: Stated None - Discharge Diagnosis(es) (1) labor in second trimester with delivery in second trimester Current Visit: Yes Status: Acute Hospital Course: This is a 33-year-old female 3 para 2 at 21-2/7 weeks who presented in active labor with complete dilation. She delivered a viable male with scores of 4 at 1 minute and 3 at 5 minutes. The baby did approximate 45 minutes after . Comfort Care was given due to the extreme prematurity. she has complained of back pain. She states she does have chronic back pain and has followed with Dr. Orona for this in the past. She has used Vicodin in the past for this. Since delivery however her back pain has started to flareup more. Her bleeding has been minimal. She has made arrangements with the home. She will like to go home today. Vital signs are stable. Abdomen is soft with fundus firm and nontender. Extremities show negative Homans. Impression is status post vaginal delivery of extremely premature day #0. Plan is to discharge home today. I have advised her to follow up in the office with me in 1-2 weeks. I will give her a prescription for a 3 day supply of [place] and have advised her to follow-up with her primary physician for any ongoing pain issues. I have also given her 2 pills of Xanax to use as needed. She is advised to call the office if she has a ny concerns prior to her appointment time. She states she has used Zoloft in the past but has not seen a counselor in the past. She will call if she feels that she needs to start on anything. She is encouraged to seek counseling also. Patient Condition at Discharge: Stable Plan - Discharge Summary New Discharge Prescriptions: New Ibuprofen [Motrin] 600 mg PO Q6HR PRN #60 tab PRN Reason: Mild Pain Or Fever >= 100.5 HYDROcodone/APAP 5-325MG [[place] 5-325] 1 each PO Q4HR PRN #18 tab PRN Reason: Moderate To Severe Pain ALPRAZolam [Xanax] 0.25 mg PO DAILY PRN #2 tab PRN Reason: Anxiety Continue Pnv,Calcium 72/Iron/Folic Acid [ Plus Tablet] 1 tab PO DAILY No Action Iron/Folate 9/Vit C/D3/B6/B12 [Nufera Tablet] 1 tab PO DAILY Discharge Medication List Pnv,Calcium 72/Iron/Folic Acid [ Plus Tablet] 1 tab PO DAILY 02/25/19 [History] ALPRAZolam [Xanax] 0.25 mg PO DAILY PRN #2 tab 03/10/19 [Rx] HYDROcodone/APAP 5-325MG [[place] 5-325] 1 each PO Q4HR PRN #18 tab 03/10/19 [Rx] Ibuprofen [Motrin] 600 mg PO Q6HR PRN #60 tab 03/10/19 [Rx] Iron/Folate 9/Vit C/D3/B6/B12 [Nufera Tablet] 1 tab PO DAILY 03/10/19 [History] Follow up Appointment(s)/Referral(s): Orquidea Nuñez DO [Doctor of Osteopathic Medicine] - 10 Days Activity/Diet/Wound Care/Special Instructions: Activity as tolerated. Diet as tolerated. May shower but no tub baths for 1-2 weeks. No intercourse for 3 weeks. Discharge Disposition: HOME SELF-CARE
[2019-03-10 11:16] VITALS: BP 101/64; PULSE 95; TEMP 97.4
== END 2019-03-10 12:05 | disposition home or self-care (01) | DRG 807 ==
LOC: FBPOP 02:30 → 4FBP 03:24
PROVIDERS: ADMIT Obstetrics & Gynecology; ATTEND Obstetrics & Gynecology
PROC: 10E0XZZ Delivery of Products of Conception, External Approach (ICD-10-PCS; principal; 2019-03-10)
DX: O60.12X0 Preterm labor second trimester with preterm delivery second trimester, not applicable or unspecified (principal); Z37.0 Single live birth; O32.1XX0 Maternal care for breech presentation, not applicable or unspecified; O24.420 Gestational diabetes mellitus in childbirth, diet controlled; O99.344 Other mental disorders complicating childbirth; O67.8 Other intrapartum hemorrhage; Z3A.21 21 weeks gestation of pregnancy; O99.334 Smoking (tobacco) complicating childbirth; F41.9 Anxiety disorder, unspecified; G89.29 Other chronic pain; M54.9 Dorsalgia, unspecified; F17.210 Nicotine dependence, cigarettes, uncomplicated; Z79.899 Other long term (current) drug therapy; Z82.49 Family history of ischemic heart disease and other diseases of the circulatory system; Z83.49 Family history of other endocrine, nutritional and metabolic diseases
CPT/HCPCS: 85025; 86850; 86900; 86901; 88305; 99213

== ENCOUNTER 2021-05-11 15:55 | Emergency (ER) | payer OTHER ==
[2021-05-11 16:33] VITALS: BP 119/82; PULSE 90; RESP 18; TEMP 98.8
[2021-05-11] MEDS ORDERED: KETOROLAC 15 MG/ML 1 ML VIAL IM STA (17:42)
--- NOTE | 2021-05-11 18:31 | XR ---
EXAMINATION TYPE: XR shoulder complete LT DATE OF EXAM: 05/11/2021 COMPARISON: NONE HISTORY: Pain TECHNIQUE: 3 views FINDINGS: I see no fracture nor dislocation. Joint spaces are normal. There are no pathologic calcifi cations. IMPRESSION: Negative left shoulder exam.
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
--- NOTE | 2021-05-11 18:46 | XR ---
EXAMINATION TYPE: XR Hip LT and AP Pelvis DATE OF EXAM: 05/11/2021 COMPARISON: NONE HISTORY: Hip pain TECHNIQUE: 3 view FINDINGS: Pelvic ring is intact. Proximal left femur and hip joint appear intact. There is no hip dys plasia. Sacroiliac joints are intact. IMPRESSION: Negative pelvis and left hip exam.
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
== END 2021-05-11 19:06 | disposition home or self-care (01) ==
LOC: EC 15:55
DX: S13.9XXA Sprain of joints and ligaments of unspecified parts of neck, initial encounter (principal); M79.602 Pain in left arm; M25.552 Pain in left hip; F17.200 Nicotine dependence, unspecified, uncomplicated; V49.3XXA Car occupant (driver) (passenger) injured in unspecified nontraffic accident, initial encounter
CPT/HCPCS: 73030; 73502; 72125; 70450; 99284; 96372; J1885